=== PATIENT | female | born 1945 | race African-American/Black ===

== ENCOUNTER → 2020-04-16 15:12 | Outpatient (BNVA) | payer MEDICARE, SELFPAY | PROVIDERS: Visit Provider Hospitalist | DX: J44.9 Chronic obstructive pulmonary disease, unspecified (principal); I27.20 Pulmonary hypertension, unspecified; G47.33 Obstructive sleep apnea (adult) (pediatric); Z79.899 Other long term (current) drug therapy; Z99.89 Dependence on other enabling machines and devices | CPT/HCPCS: 99212 ==

== ENCOUNTER → 2020-05-12 09:46 | Outpatient (REF) | payer MEDICARE, SELFPAY ==
--- NOTE | 2020-05-12 09:50 | CA_ITS ---
Transthoracic Echocardiogram Patient (Last, First, Middle): Celeste Koroma, Gender: Female Date of : 1945 Age: 75 Procedure Date: 05/12/2020 Procedure Type: Transthoracic Echocardiogram Location: OP Height: 170.18 cm Weight: 102.06 kg BSA: 2.13 m2 Heart Rate: bpm BP: 122 / 56 mmHg Victims Advocate Clerk/Specialist: Referring MD: Josiah Turk MD Symptoms: I27.20 - Pulmonary hypertension, unspecified Study Quality: Good ECG Rhythm: Sinus Conclusions: - The left ventricular systolic function is normal. The visually estimated ejection fraction is between 65-70%. - The right ventricular systolic pressure is 56 mmHg. Moderate pulmonary hypertension is present. - There is mild calcification of the aortic valve. - There is mild mitral annular calcification. Findings Left Ventricle Normal left ventricular cavity size. There is mildly increased left ventricular wall thickness. The left ventricular systolic function is normal. The visually estimated ejection fraction is between 65-70%. There is no evidence of regional wall motion abnormalities. Diastolic function is normal for age. Right Ventricle Normal right ventricular cavity size and systolic function. Atria Both atria are normal in size. Aortic Valve There is a normal trileaflet aortic valve. There is mild calcification of the aortic valve. There is no aortic valve stenosis. There is no aortic valve regurgitation. Mitral Valve There is mild mitral annular calcification. There is trace mitral valve regurgitation. There is no mitral valve stenosis. Pulmonic Valve The pulmonic valve was not well visualized. Tricuspid Valve Normal tricuspid valve structure. There is mild tricuspid valve regurgitation. The right ventricular systolic pressure is 56 mmHg. Moderate pulmonary hypertension is present. Great Vessels The aortic annulus, sinuses of valsalva, and asc aorta are normal in size. Venous The inferior vena cava is normal in size and collapses greater than 50% with inspiration. Pericardium/Pleural There is no evidence of pericardial effusion. Prior Study Comparison No significant change compared to prior study dated: 08/06/2019. Measurements 2D Linear Measurements RVIDd: 4.33 RVIDd Index: 2.03 IVSd: 1.37 0.6-0.9/0.6-1.0 cm LVIDd: 4.23 3.9-5.3/4.2-5.9 cm LVIDd Index: 1.99 2.4-3.2/2.2-3.1 cm/m2 LVIDs: 2.75 2.0-3.6 cm LVPWd: 1.41 0.7-1.1 cm Ao Root: 2.50 2.1-3.5 cm LA Diam: 5.30 2.7-3.8/3.0-4.0 cm LAIDs Index: 2.49 1.5-2.3 cm/m2 LV Mass: 279.54 67-162/88-224 g LV Mass Index: 131.24 43-95/49-115 g/m2 LVOT Diam: 2.20 3.0+(-)1.3 cm 2D Systolic Function EF 4C: 62.50 >55% EF 2C: 65.00 >55% EF BiP: 64.70 >55% Mitral Valve MV Pk E: 0.88 MV PK A: 0.75 MV Decel Time: 218.00 E/A: 1.20 E'Lateral: 8.16 E'Medial: 7.51 E/E' Med: 11.70 E/E' Lat: 10.80 Aortic Valve AoV Pk Marques: 2.11 AoV Mn Marques: 1.43 AoV VTI: 0.41 AoV Pk Grad: 18.00 Aov Mn Grad: 10.00 JOANA Cont.VTI: 3.40 LVOT LVOT Pk Marques: 1.78 LVOT Mn Marques: 1.25 LVOT VTI: 0.37 LVOT Pk Grad: 13.00 LVOT Mn Grad: 7.00 LVOT Diam: 2.20 LVOT Area: 3.80 Diastolic Function MV Pk E: 0.88 MV Pk A: 0.75 E/A: 1.20 E'Medial: 7.51 E/E' Med: 11.70 E' Laterial: 8.16 E/E' Lat: 10.80 Tricuspid Valve TR Pk Marques: 3.46 TR Pk Grad: 48.00 RA Press: 8.00 RVSP: 56.00 Great Vessels Aorta Ao Root-2D: 2.50 2.0-3.7 cm Ao Asc: 2.90 2.1-3.4 cm Ao Arch: 3.70 Updated in Other Vendor System with Status of Final Chris Vazquez MD electronically signed on 05/12/2020 12:12:14 PM with status of Final
== END ==
LOC: HO.CARD 09:46
PROVIDERS: Visit Provider Hospitalist
DX: I27.20 Pulmonary hypertension, unspecified (principal)
CPT/HCPCS: 93306

== ENCOUNTER → 2020-07-14 13:07 | Outpatient (BNVA) | payer MEDICARE, SELFPAY | PROVIDERS: Visit Provider Hospitalist | DX: G47.33 Obstructive sleep apnea (adult) (pediatric) (principal); J41.0 Simple chronic bronchitis; I27.20 Pulmonary hypertension, unspecified; Z99.89 Dependence on other enabling machines and devices | CPT/HCPCS: 99212 ==

== ENCOUNTER 2020-10-15 14:11 | Outpatient (REF) | payer MEDICARE, SELFPAY ==
--- NOTE | ~2020-10-15 | XR_ITS ---
EXAMINATION: XR CHEST CLINICAL INFORMATION: Simple chronic bronchitis. COMPARISON: None TECHNIQUE: 2 views of the chest were obtained. FINDINGS: No significant abnormality is noted involving the heart, lungs, mediastinum, bony thorax or soft tissues. XR/XR chest 2V IMPRESSION: Unremarkable chest exam.
== END 2020-10-15 14:12 | disposition home or self-care (01) ==
LOC: HO.XRAY 14:11
PROVIDERS: Visit Provider Hospitalist
DX: I27.20 Pulmonary hypertension, unspecified (principal); J41.0 Simple chronic bronchitis; Z79.899 Other long term (current) drug therapy; Z99.81 Dependence on supplemental oxygen; G47.33 Obstructive sleep apnea (adult) (pediatric); Z99.89 Dependence on other enabling machines and devices
CPT/HCPCS: 71046; 99212

== ENCOUNTER → 2021-02-16 14:51 | Outpatient (BNVA) | payer MEDICARE, SELFPAY | PROVIDERS: Visit Provider Hospitalist | DX: I27.20 Pulmonary hypertension, unspecified (principal); J41.0 Simple chronic bronchitis; G47.33 Obstructive sleep apnea (adult) (pediatric); R00.2 Palpitations; Z99.89 Dependence on other enabling machines and devices | CPT/HCPCS: 99212 ==

== ENCOUNTER → 2021-08-13 14:52 | Outpatient (BNVA) | payer MEDICARE, SELFPAY | PROVIDERS: Visit Provider Hospitalist | DX: J41.0 Simple chronic bronchitis (principal); I27.20 Pulmonary hypertension, unspecified; R00.2 Palpitations; G47.33 Obstructive sleep apnea (adult) (pediatric); Z99.89 Dependence on other enabling machines and devices | CPT/HCPCS: 99212 ==

== ENCOUNTER → 2021-12-06 13:54 | Outpatient (REF) | payer MEDICARE, SELFPAY ==
--- NOTE | 2021-12-06 14:01 | CA_ITS ---
Transthoracic Echocardiogram Patient (Last, First, Middle): Celeste Koroma, Gender: Female Date of : 1945 Age: 76 Procedure Date: 12/06/2021 Procedure Type: Transthoracic Echocardiogram Location: OP Height: 170.18 cm Weight: 104.33 kg BSA: 2.15 m2 Heart Rate: 78 bpm Development Officer: SAYRA Referring MD: Josiah Turk MD Communications Equipment Installer: Bin Kelley MD Symptoms: I27.20 - Pulmonary hypertension, unspecified Study Quality: Fair ECG Rhythm: Sinus Conclusions: - 1. Normal LV systolic function with impaired relaxation filling pattern 2. Normal cardiac valvular Doppler 3. Normal RV systolic pressure 4. No gross pericardial effusion Findings Left Ventricle Normal left ventricular size, thickness, and systolic function. The visually estimated ejection fraction is between 60-65%. Spectral Doppler is indicative of an impaired relaxation filling pattern. E/E prime ratio is between 8 and 15 consistent with indeterminate filling pressures. Right Ventricle Normal right ventricular cavity size and systolic function. Atria The left atrium is likely dilated. There is no evidence of interatrial shunt. The right atrium is likely dilated. Aortic Valve The aortic valve was not well visualized. There is no aortic valve stenosis. There is no aortic valve regurgitation. Mitral Valve There is mild anterior mitral leaflet thickening. There is mild mitral annular calcification. There is trace mitral valve regurgitation. There is no mitral valve stenosis. Pulmonic Valve The pulmonic valve was not well visualized. Tricuspid Valve Likely normal tricuspid valve structure and function. There is mild tricuspid valve regurgitation. The right ventricular systolic pressure is normal. The right ventricular systolic pressure is 33 mmHg. There is no evidence of pulmonary hypertension. Great Vessels All visible segments of the aorta are normal in size. The pulmonary artery was not well visualized. Venous The inferior vena cava is normal in size and collapses greater than 50% with inspiration. Pericardium/Pleural There is no evidence of pericardial effusion. Prior Study Comparison Changes noted compared to prior study dated: 05/12/2020. RV systolic pressure measured on this study are within normal limits, could be underestimated Measurements 2D Linear Measurements IVSd: 1.14 0.6-0.9/0.6-1.0 cm LVIDd: 4.42 3.9-5.3/4.2-5.9 cm LVIDd Index: 2.06 2.4-3.2/2.2-3.1 cm/m2 LVIDs: 2.60 2.0-3.6 cm LVPWd: 1.02 0.7-1.1 cm LA Diam: 4.10 2.7-3.8/3.0-4.0 cm LAIDs Index: 1.91 1.5-2.3 cm/m2 LV Mass: 206.48 67-162/88-224 g LV Mass Index: 96.04 43-95/49-115 g/m2 LVOT Diam: 2.20 3.0+(-)1.3 cm 2D Systolic Function EF 4C: 60.30 >55% EF 2C: 53.40 >55% EF BiP: 56.00 >55% Mitral Valve MV Pk E: 0.66 MV PK A: 0.70 MV Decel Time: 166.00 E/A: 1.00 E'Lateral: 6.85 E'Medial: 6.09 E/E' Med: 10.90 E/E' Lat: 9.70 PHT: 49.00 MVA PHT: 4.49 Decel [place]: 4.00 Aortic Valve AoV Pk Marques: 1.59 AoV Mn Marques: 1.07 AoV VTI: 0.30 AoV Pk Grad: 10.00 Aov Mn Grad: 5.00 JOANA Cont.VTI: 3.80 LVOT LVOT Pk Marques: 1.44 LVOT Mn Marques: 0.94 LVOT VTI: 0.30 LVOT Pk Grad: 8.00 LVOT Mn Grad: 4.00 LVOT Diam: 2.20 LVOT Area: 3.80 Diastolic Function MV Pk E: 0.66 MV Pk A: 0.70 E/A: 1.00 E'Medial: 6.09 E/E' Med: 10.90 E' Laterial: 6.85 E/E' Lat: 9.70 Right Ventricle TAPSE (mm): 24.30 TVS' Marques: 11.50 Tricuspid Valve TR Pk Marques: 2.73 TR Pk Grad: 30.00 RA Press: 3.00 RVSP: 33.00 Great Vessels Aorta Sinus of Valsalva: 2.90 2.0-3.5 cm Ao Asc: 3.30 2.1-3.4 cm Ao Arch: 3.40 Pulmonary Valve PV Pk Marques: 1.09 Peak PV Grad: 5.00 Updated in Other Vendor System with Status of Final Bin Kelley MD electronically signed on 12/07/2021 5:27:28 PM with status of Final
== END ==
LOC: HO.CARD 13:54
PROVIDERS: PCP Internal Medicine; Visit Provider Hospitalist
DX: I27.20 Pulmonary hypertension, unspecified (principal)
CPT/HCPCS: 93306

== ENCOUNTER → 2022-02-15 15:30 | Outpatient (BNVA) | payer MEDICARE, SELFPAY | PROVIDERS: PCP Internal Medicine; Visit Provider Hospitalist | DX: J41.0 Simple chronic bronchitis (principal); I27.20 Pulmonary hypertension, unspecified; G47.33 Obstructive sleep apnea (adult) (pediatric); R00.2 Palpitations; Z99.89 Dependence on other enabling machines and devices | CPT/HCPCS: 99212 ==

== ENCOUNTER → 2022-08-11 15:20 | Outpatient (BNVA) | payer MEDICARE, SELFPAY | PROVIDERS: PCP Internal Medicine; Visit Provider Hospitalist | DX: J41.0 Simple chronic bronchitis (principal); G47.33 Obstructive sleep apnea (adult) (pediatric); I27.20 Pulmonary hypertension, unspecified; R00.2 Palpitations; Z99.81 Dependence on supplemental oxygen; Z99.89 Dependence on other enabling machines and devices | CPT/HCPCS: 99212 ==

== ENCOUNTER 2023-03-16 15:29 | Outpatient (AMB) | payer MEDICARE, SELFPAY ==
[2023-03-16 15:31] VITALS: PULSE 79; O2SAT 94; BMI 35.4
--- NOTE | 2023-03-16 15:31 | A.OFFVIS_ITS ---
Intake Vital Signs 03/16/23 15:31 Height 5 ft 7 in Weight 226 lb BMI 35.4 Pulse 79 Pulse Source Pulse Oximeter Pulse Oximetry (%) 94 Oxygen Delivery Method Room Air Intake Visit Reasons: COPD Hydrometeorologist Required: No Allergies No Known Allergies Allergy (Verified 03/16/23 15:33) HPI HPI Comments History of Present Illness0 Details The patient is a 77-year-old woman with a known history of COPD, pulmonary hypertension currently a an PD5 inhibitors. She also has been on the oxygen. Typically uses 2 L with activity. I will have Milli to a conserving device trial at this time. She does follow up with Cardiology a [facility]. Will have to assess to see when she had the last echocardiogram. Her major complaint of significant spasms primarily on the thighs in the groin area. She feels these are related to her radiation therapy she had for breast cancer. She has been on multiple medications for this. Will try some anti-inflammatories to see if we can relieve some of the discomfort. She was wondering about hyperbaric chamber. She will follow-up with oncology regarding this issue. In regards to her COPD appears to be relatively stable on the Breo. She understands the Breo can also cause muscle spasms. She has been taking gabapentin and we did try baclofen in case the muscle spasms were from the long-acting muscarinic antagonist. At this point the patient is not getting any benefits from baclofen. She still having neuropathic pain. He is to consider following up with Neurology. She is using her oxygen. The oxygen supplementation has been effective. She does have a small portable tank. I did recommend she consider getting a filling station at home. She will let us know later on the . She she did have an echocardiogram demonstrating that the PA pressures estimated of 51 mm of mercury. This overall is better. 12/17/2019 the patient is here for pulmonary follow-up visit. Overall she is doing a lot better. She feels that the sildenafil is working well for her. She is also taking the diuretics. She no longer has any lower extremity edema. Her echocardiogram was reassuring with the pressure is coming down as far as the PA pressures. She denies any further chest pains like she had before during the last visit. She did try ibuprofen for briefly and appears to be improved at this time. She continues to use her CPAP at nighttime. The CPAP therapy has been affecting beneficial. She does have a fullface mask that is bothering the bridge of her nose. Therefore I will request that she gets a different mask such as F30 that she could fit better without any irritation to the bridge of her nose. She continues use the oxygen. She does take it oxygen off when she is sitting up as long she pulse ox above 90%. 04/16/2020 the patient is here for pulmonary follow-up visit. Overall the patient has been doing well. She continues on the sildenafil, although, she was only taking it twice a day. She understands that she needs to take it 3 times a day. Patient has been using her oxygen. She has been able to take breaks while she is resting maintaining a pulse ox above 90%. At she has been using her CPAP the oxygen good effect. The therapy has been affecting beneficial. She does uses CPAP more than 4 hours a night. The patient has underlying pulmonary hypertension. She still has some dyspnea on exertion [id number] severity. Her lower extremity edema is indeed better. At this point will plan to repeat her echocardiogram and see if we can adjust her face a dilator therapy. the patient is here for pulmonary follow-up visit. Overall the patient has been doing well from a respiratory status. She continues to take the sildenafil 20 mg 3 times a day with good effect. She is also using the CPAP at nighttime. The CPAP therapy continues to be affecting beneficial. She does use for more than 4 hours a night. It appears that her repeat echocardiogram demonstrates that her PA pressures are slightly more elevated than before up to size 56 mm of mercury, therefore, will go ahead and increase sildenafil to 40 mg 3 times a day. The patient will monitor closely her blood pressure also any evidence of any dizziness and she also monitor her oxygen. If she has any other concerns of side effects from medication or if she is not sure she is to call us for evaluation. In the meantime she is having issues with right hip. She will follow-up with orthopedic surgery at this time. 10/15/2020 the patient is here for pulmonary follow-up visit. Overall the patient has been doing about the same. She continues to use the oxygen with activity at 2-3 L pulse. She typically is able to stay on room air at rest. We had center a prescription for high-dose sildenafil of 40 mg 3 times a week due to the fact that her pulmonary pressures were still moderately elevated. However, she was concerned about taking additional medications that she has not done as of yet. Explained to her that she can do slowly taking 2 tablets at least once at the 3 times to see how she response to the higher dose. I foresee that she will do better. Explained to her that if the medication works she should have better oxygenation and she will be happy about that. She continues taking the Breo daily. She has not been taking the Spiriva at this time. Will have the patient undergo a chest x-ray. I am hoping that she can increase her sildenafil so we can perform a 6 minutes walk test during his next visit in 3 months. 02/16/2021 the patient is here for a pulmonary follow-up visit. Overall the patient is feeling well. She still using the oxygen with the activity at 2- 3 L pulse. She was concerned about increasing the sildenafil. She did not want to have an adverse reaction so therefore she did not increase it. She is still on the 20 mg 3 times a day. She understood that the reasoning was that her pulmonary pressures were still moderately elevated with a PA systolic estimated pressure of a 56 mmHg. In the meantime the patient has been using her CPAP. CPAP therapy continues to be affecting beneficial. She does tolerated the whole night. Right now I do not have access to her CPAP and will be calling her [employer] in order to be able to get a download. the patient has been using her respiratory therapy with good effect. She is tolerating the Trelegy very well. She also continues on the diuretic. She has noticed some slight lower extremity edema specially be of the day. Her new complaint is that she has had some episodes of palpitations and fluttering. she had been seen by Cardiology past at [facility]. I will refer her again in order for her to have an evaluation specially with her significant pulmonary hypertension she is at risk for developing cardiac arrhythmias. the patient is not on any anticoagulation at this time. 08/13/2021 the patient is here for a pulmonary follow-up visit. Overall she is doing well. Denies any chest pains or palpitations. We did refer her to Cardiology during the last visit but she did not follow up with an appointment there. She continues use her CPAP at nighttime. The CPAP therapy continues to be affecting beneficial. She has been getting supplies regularly. She does have any issues with her CPAP. The patient has been using the oxygen with activity. She also continues on the sildenafil 3 times a day. She does need to get a new echo. Her last estimated pressures were up to 56 mmHg. 02/15/2022 the patient is here for a pulmonary follow-up visit. Overall she is doing well. Her shortness of breath has improved. Sometimes she does walk without the oxygen she feels well. Usually in the house she is not using it. She is using it for sleep which is affecting beneficial. The patient is also using CPAP at nighttime. The CPAP therapy continues to be very important. She does use it more than 4 hours a night. She is getting the wound mask. I will resend the prescription to the [employer] in order for her to get the right 1. the patient did have a repeat echocardiogram. It appears that her pulmonary pressures have improved dramatically from is 56 mmHg down to the low 30s. This is very encouraging. She continues on the sildenafil she is tolerating well. She does have increased cough and also now going to the fall usually has increased wheezing. She had been on Advair before but it was very prior IC. I will go ahead and give her prescription for Trelegy with coupon in order for her to start a maintenance the inhaler. When she has completed the Trelegy she can try to fill it. If it is too expensive will find another alternative. 08/12/2022 the patient is here for a pulmonary follow-up visit. Overall the patient had been doing well. She is still waiting for the sildenafil. There was an issue with a prescription. Will go ahead and resend to the ph armacy. We did talk about her echocardiogram demonstrating interval improvement in her pulmonary arterial pressures which is reassuring. Will have to repeat the echocardiogram sometime in 6 months or so to make sure that still stability of disease. We can also consider increasing the sildenafil if additional medication is warranted. In regards the CPAP the CPAP therapy continues to be affecting beneficial. She does use it every night along with her oxygen. She continues use the oxygen with activity with good effect and continues use her respiratory medicine. Although, the Trelegy is extremely expensive. Therefore I will send her Advair to the pharmacy. If the Advair is not cover or still too expensive then we can consider using good Rx card and getting AirDuo. 03/16/2023 the patient is here for a pulmonary follow-up visit. The patient continues to have dyspnea on exertion. Moderate severity. She is dependent on the oxygen. Although the portable tanks difficult for her to handle because of the weight. She is hoping to be able to switch over to a conserving device. we did do a 6 minute walk test. We initially placed her on room air and she did desaturate down to 80%. The patient was placed on 3 L pulse and she was able to maintain a pulse ox of 94% On the 3 L pulse of rest. She was then ambulated and she was able to maintain pulse ox at 90%. Therefore will go ahead and give her a prescription so she can get some conserving device tanks from her [employer] company and therefore use the oxygen more regularly. If the patient continues to do well with the conserving device tanks then we can request a portable oxygen concentrator. She will be following up with [employer] soon. She will continue with the current respiratory regimen. She is using CPAP at nighttime. The CPAP therapy has been affecting beneficial. She does use it for more than 4 hours a night. [facility] Medical History (Updated 02/15/22 @ 23:38 by Josiah Turk MD) Palpitations RIP on CPAP COPD (chronic obstructive pulmonary disease) Pulmonary hypertension Social History (Updated 02/16/21 @ 15:09 by BELL Garcia) Patient Tobacco Use Status: Never used Tobacco Review of Systems Const Denies night sweats ENT Denies change in voice, Denies lip swelling, Denies mouth pain, Reports nasal congestion, Reports nasal discharge and Denies tongue swelling Card Denies chest pain and Reports dyspnea on exertion Resp Reports cough, Reports dyspnea on exertion and Denies wheezing GI Denies abdominal pain Musc Denies no additional complaints Neuro Denies Neuro-related abnormal movements Psych Denies no additional complaints Winston/Lymph Denies easy bleeding and Denies lymphadenopathy Aller/Immun Denies lip swelling, Denies tongue swelling and Denies wheezing Physical Exam Vital Signs: Last Vital Signs Pulse 79 03/16/23 15:31 Pulse Ox 94 03/16/23 15:31 Oxygen Delivery Method Room Air 03/16/23 15:31 BMI result Body Mass Index 35.4 Const General: alert Neck Neck: Yes normal visual inspection, Yes full ROM and Yes no lymphadenopathy Chest Chest palpation & inspection: normal inspection of the chest Resp Effort & Inspection: normal respiratory effort Auscultation: no wheezes and diminished lung sounds Cardio Rate: regular rate Rhythm: regular rhythm Heart sounds: S1 normal heart sound present and S2 normal heart sound present GI Palpation (GI): Soft to palpation and nontender Auscultation: normal bowel sounds Skin General skin exam: rashes and/or lesions noted Office Procedures 6 Minute Walk Time:: 22:57 SPO2 % at rest: 87 Pulse at rest: 78 Supplemental Oxygen: hypoxic 87% on RA at rest, on 3l/pulse improved to 94%. With activity on 3L/pulse pox 90% [id number] - 6 Minute Walk Assessment & Plan Assessment & Plan (1) RIP on CPAP: Code(s): G47.33 - Obstructive sleep apnea (adult) (pediatric); Z99.89 - Dependence on other enabling machines and devices (2) COPD (chronic obstructive pulmonary disease): Code(s): J44.9 - Chronic obstructive pulmonary disease, unspecified Qualifiers: COPD type: chronic bronchitis Chronic bronchitis type: simple Qualified Code(s): J41.0 - Simple chronic bronchitis (3) Pulmonary hypertension: Comment: better Code(s): I27.20 - Pulmonary hypertension, unspecified (4) Palpitations: Code(s): R00.2 - Palpitations Plan Revision: requesting conserving tank oxygen 3L pulse with rest and activity continue Breo ANNALISE as needed continue Sildenafil 20mg TID CPAP at night with oxygen F/U 6 months Coding Level of Care Code Est Pt Level 4 (13600) Diagnoses RIP on CPAP G47.33; Z99.89 Simple chronic bronchitis J41.0 COPD type: chronic bronchitis Chronic bronchitis type: simple Pulmonary hypertension I27.20 Palpitations R00.2 CPT Codes Coding ([id number]) Time Spent (min) 17
[2023-03-16 22:57] VITALS: PULSE 78; O2SAT 87
== END 2023-03-16 16:03 | disposition home or self-care (01) ==
PROVIDERS: PCP Internal Medicine; Visit Provider Hospitalist
DX: G47.33 Obstructive sleep apnea (adult) (pediatric) (principal); Z99.89 Dependence on other enabling machines and devices; J41.0 Simple chronic bronchitis; I27.20 Pulmonary hypertension, unspecified; R00.2 Palpitations
CPT/HCPCS: 94618; 99214

== ENCOUNTER → 2023-03-16 15:29 | Outpatient (BNVA) | payer MEDICARE, SELFPAY | PROVIDERS: Visit Provider Hospitalist | DX: J41.0 Simple chronic bronchitis (principal); G47.33 Obstructive sleep apnea (adult) (pediatric); I27.20 Pulmonary hypertension, unspecified; R00.2 Palpitations; Z99.89 Dependence on other enabling machines and devices | CPT/HCPCS: 94618; 99212 ==

== ENCOUNTER 2023-06-27 14:43 | Outpatient (AMB) | payer MEDICARE, SELFPAY ==
--- NOTE | 2023-06-27 14:46 | MHC.OFFVIS ---
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 She also has been on the oxygen. Typically uses 2 L with activity. I will have Lidiaare to a conserving device trial at this time. She does follow up with Cardiology a [facility]. Will have to assess to see when she had the last echocardiogram. Her major complaint of significant spasms primarily on the thighs in the groin area. She feels these are related to her radiation therapy she had for breast cancer. She has been on multiple medications for this. Will try some anti-inflammatories to see if we can relieve some of the discomfort. She was wondering about hyperbaric chamber. She will follow-up with oncology regarding this issue. In regards to her COPD appears to be relatively stable on the Breo. She understands the Breo can also cause muscle spasms. She has been taking gabapentin and we did try baclofen in case the muscle spasms were from the long-acting muscarinic antagonist. At this point the patient is not getting any benefits from baclofen. She still having neuropathic pain. He is to consider following up with Neurology. She is using her oxygen. The oxygen supplementation has been effective. She does have a small portable tank. I did recommend she consider getting a filling station at home. She will let us know later on the . She she did have an echocardiogram demonstrating that the PA pressures estimated of 51 mm of mercury. This overall is better. 08/12/2022 the patient is here for a pulmonary follow-up visit. Overall the patient had been doing well. She is still waiting for the sildenafil. There was an issue with a prescription. Will go ahead and resend to the pharmacy. We did talk about her echocardiogram demonstrating interval improvement in her pulmonary arterial pressures which is reassuring. Will have to repeat the echocardiogram sometime in 6 months or so to make sure that still stability of disease. We can also consider increasing the sildenafil if additional medication is warranted. In regards the CPAP the CPAP therapy continues to be affecting beneficial. She does use it every night along with her oxygen. She continues use the oxygen with activity with good effect and continues use her respiratory medicine. Although, the Trelegy is extremely expensive. Therefore I will send her Advair to the pharmacy. If the Advair is not cover or still too expensive then we can consider using good Rx card and getting AirDuo. 03/16/2023 the patient is here for a pulmonary follow-up visit. The patient continues to have dyspnea on exertion. Moderate severity. She is dependent on the oxygen. Although the portable tanks difficult for her to handle because of the weight. She is hoping to be able to switch over to a conserving device. we did do a 6 minute walk test. We initially placed her on room air and she did desaturate down to 80%. The patient was placed on 3 L pulse and she was able to maintain a pulse ox of 94% On the 3 L pulse of rest. She was then ambulated and she was able to maintain pulse ox at 90%. Therefore will go ahead and give her a prescription so she can get some conserving device tanks from her [employer] company and therefore use the oxygen more regularly. If the patient continues to do well with the conserving device tanks then we can request a portable oxygen concentrator. She will be following up with cash applications analyst soon. She will continue with the current respiratory regimen. She is using CPAP at nighttime. The CPAP therapy has been affecting beneficial. She does use it for more than 4 hours a night. 06/27/2023 the patient is here for a pulmonary follow-up visit. She continues to do fairly well. The patient continues use her oxygen with good effect. She does use the conserving device. She only gets 1 conserving device valve which is very difficult as she has 2 small tanks that she likes use for portability outside of the home. I will request a additional conserving valve from her [employer] company. In addition to that the patient has been using her CPAP every night in the CPAP therapy has been affecting beneficial. She does use it for more than 4 hours a night. Unfortunately is given a message stating that it needs service. The patient has had this machine for more than 10 years. She is due for replacement at this time. I will request a replacement CPAP at this time from her do local [employer] company. She continues use her respiratory medications as prescribed. The patient also continues on sildenafil for pulmonary hypertension. Her last echo on record is from November 2021 estimate in in high normal pulmonary pressures suggesting that the medication is adequate. At some point which repeat her echocardiogram. [facility] Medical History (System 04/18/23 @ 15:41 by Sheron Holden) Palpitations RIP on CPAP COPD (chronic obstructive pulmonary disease) Pulmonary hypertension Social History (System 04/18/23 @ 15:41 by Sheron Holden) Patient Tobacco Use Status: Never used Tobacco Review of Systems Const Denies night sweats ENT Denies change in voice, Denies lip swelling, Denies mouth pain, Reports nasal congestion, Reports nasal discharge and Denies tongue swelling Card Denies chest pain and Reports dyspnea on exertion Resp Reports cough, Reports dyspnea on exertion and Denies wheezing GI Denies abdominal pain Musc Denies no additional complaints Neuro Denies Neuro-related abnormal movements Psych Denies no additional complaints Winston/Lymph Denies easy bleeding and Denies lymphadenopathy Aller/Immun Denies lip swelling, Denies tongue swelling and Denies wheezing Physical Exam Vital Signs: Last Vital Signs Pulse 80 06/27/23 14:50 Pulse Ox 90 L 06/27/23 14:50 Oxygen Delivery Method Room Air 06/27/23 14:50 BMI result Body Mass Index 35.9 Const General: alert Neck Neck: Yes normal visual inspection, Yes full ROM and Yes no lymphadenopathy Chest Chest palpation & inspection: normal inspection of the chest Resp Effort & Inspection: normal respiratory effort Auscultation: no wheezes and diminished lung sounds Cardio Rate: regular rate Rhythm: regular rhythm Heart sounds: S1 normal heart sound present and S2 normal heart sound present GI Palpation (GI): Soft to palpation and nontender Auscultation: normal bowel sounds Skin General skin exam: rashes and/or lesions noted Assessment & Plan Assessment & Plan (1) RIP on CPAP: Code(s): G47.33 - Obstructive sleep apnea (adult) (pediatric); Z99.89 - Dependence on other enabling machines and devices (2) COPD (chronic obstructive pulmonary disease): Code(s): J44.9 - Chronic obstructive pulmonary disease, unspecified Qualifiers: COPD type: chronic bronchitis Chronic bronchitis type: simple Qualified Code(s): J41.0 - Simple chronic bronchitis (3) Pulmonary hypertension: Comment: better Code(s): I27.20 - Pulmonary hypertension, unspecified (4) Palpitations: Code(s): R00.2 - Palpitations Plan Revision: requesting conserving tank oxygen 3L pulse with rest and activity. Needs an additional conserving valve continue Breo ANNALISE as needed continue Sildenafil 20mg TID CPAP at night with oxygen. Needs a replacement APAP. Current machine is >10 yrs old now with service alarm ECHO and CXR for the next visit F/U 6 months Coding Level of Care Code Est Pt Level 4 (49250) Diagnoses RIP on CPAP G47.33; Z99.89 Simple chronic bronchitis J41.0 COPD type: chronic bronchitis Chronic bronchitis type: simple Pulmonary hypertension I27.20 Palpitations R00.2 Time Spent (min) 17
[2023-06-27 14:50] VITALS: PULSE 80; O2SAT 90; BMI 35.9
== END 2023-06-27 15:17 | disposition home or self-care (01) ==
PROVIDERS: PCP Internal Medicine; Visit Provider Hospitalist
DX: G47.33 Obstructive sleep apnea (adult) (pediatric) (principal); Z99.89 Dependence on other enabling machines and devices; J41.0 Simple chronic bronchitis; I27.20 Pulmonary hypertension, unspecified; R00.2 Palpitations
CPT/HCPCS: 99214

== ENCOUNTER → 2023-06-27 14:43 | Outpatient (BNVA) | payer MEDICARE, SELFPAY | PROVIDERS: PCP Internal Medicine; Visit Provider Hospitalist | DX: J41.0 Simple chronic bronchitis (principal); G47.33 Obstructive sleep apnea (adult) (pediatric); I27.20 Pulmonary hypertension, unspecified; R00.2 Palpitations; Z99.89 Dependence on other enabling machines and devices | CPT/HCPCS: 99212 ==

== ENCOUNTER 2023-12-26 14:58 | Outpatient (AMB) | payer MEDICARE, SELFPAY ==
--- NOTE | 2023-12-26 15:13 | A.OFFVIS_ITS ---
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 She also has been on the oxygen. Typically uses 2 L with activity. I will have [employer] to a conserving device trial at this time. She does follow up with Cardiology a [facility]. Will have to assess to see when she had the last echocardiogram. Her major complaint of significant spasms primarily on the thighs in the groin area. She feels these are related to her radiation therapy she had for breast cancer. She has been on multiple medications for this. Will try some anti-inflammatories to see if we can relieve some of the discomfort. She was wondering about hyperbaric chamber. She will follow-up with oncology regarding this issue. In regards to her COPD appears to be relatively stable on the Breo. She understands the Breo can also cause muscle spasms. She has been taking gabapentin and we did try baclofen in case the muscle spasms were from the long-acting muscarinic antagonist. At this point the patient is not getting any benefits from baclofen. She still having neuropathic pain. He is to consider following up with Neurology. She is using her oxygen. The oxygen supplementation has been effective. She does have a small portable tank. I did recommend she consider getting a filling station at home. She will let us know later on the springtime. She she did have an echocardiogram demonstrating that the PA pressures estimated of 51 mm of mercury. This overall is better. 08/12/2022 the patient is here for a pulmonary follow-up visit. Overall the patient had been doing well. She is still waiting for the sildenafil. There was an issue with a prescription. Will go ahead and resend to the pharmacy. We did talk about her echocardiogram demonstrating interval i mprovement in her pulmonary arterial pressures which is reassuring. Will have to repeat the echocardiogram sometime in 6 months or so to make sure that still stability of disease. We can also consider increasing the sildenafil if additional medication is warranted. In regards the CPAP the CPAP therapy continues to be affecting beneficial. She does use it every night along with her oxygen. She continues use the oxygen with activity with good effect and continues use her respiratory medicine. Although, the Trelegy is extremely expensive. Therefore I will send her Advair to the pharmacy. If the Advair is not cover or still too expensive then we can consider using good Rx card and getting AirDuo. 03/16/2023 the patient is here for a pulmonary follow-up visit. The patient continues to have dyspnea on exertion. Moderate severity. She is dependent on the oxygen. Although the portable tanks difficult for her to handle because of the weight. She is hoping to be able to switch over to a conserving device. we did do a 6 minute walk test. We initially placed her on room air and she did desaturate down to 80%. The patient was placed on 3 L pulse and she was able to maintain a pulse ox of 94% On the 3 L pulse of rest. She was then ambulated and she was able to maintain pulse ox at 90%. Therefore will go ahead and give her a prescription so she can get some conserving device tanks from her [employer] company and therefore use the oxygen more regularly. If the patient continues to do well with the conserving device tanks then we can request a portable oxygen concentrator. She will be following up with meter and service line inspector soon. She will continue with the current respiratory regimen. She is using CPAP at nighttime. The CPAP therapy has been affecting beneficial. She does use it for more than 4 hours a night. 06/27/2023 the patient is here for a pulmonary follow-up visit. She continues to do fairly well. The patient continues use her oxygen with good effect. She does use the conserving device. She only gets 1 conserving device valve which is very difficult as she has 2 small tanks that she likes use for portability outside of the home. I will request a additional conserving valve from her [employer] company. In addition to that the patient has been using her CPAP every night in the CPAP therapy has been affecting beneficial. She does use it for more than 4 hours a night. Unfortunately is given a message stating that it needs service. The patient has had this machine for more than 10 years. She is due for replacement at this time. I will request a replacement CPAP at this time from her do local DME company. She continues use her respiratory medications as prescribed. The patient also continues on sildenafil for pulmonary hypertension. Her last echo on record is from November 2021 estimate in in high normal pulmonary pressures suggesting that the medication is adequate. At some point which repeat her echocardiogram. 12/26/2023 the patient is here for a pulmonary follow-up visit. The patient is doing well. She continues on the oxygen with good effect. She also continues on the sildenafil 3 times a day. She continues with respiratory therapy. She still gets shortness of breath with activity. But is at baseline. She needs to get an echocardiogram hopefully get 1 prior to her next visit. She is using her CPAP. The CPAP therapy has been affecting beneficial when she does use it every night. We did download her machine is AHI is less than 1. The patient has pressure are adequate. Therefore she will continue the CPAP therapy at the current settings. She will continue with respiratory therapy. She will follow-up in a 6 months' time with the echocardiogram. If the patient has any issues prior to that she will call for an earlier assessment. [facility] Medical History (System 04/18/23 @ 15:41 by Sheron Holden) Palpitations RIP on CPAP COPD (chronic obstructive pulmonary disease) Pulmonary hypertension Social History (System 04/18/23 @ 15:41 by Sheron Holden) Patient Tobacco Use Status: Never used Tobacco Review of Systems Const Denies night sweats ENT Denies change in voice, Denies lip swelling, Denies mouth pain, Reports nasal congestion, Reports nasal discharge and Denies tongue swelling Card Denies chest pain and Reports dyspnea on exertion Resp Reports cough, Reports dyspnea on exertion and Denies wheezing GI Denies abdominal pain Musc Denies no additional complaints Neuro Denies Neuro-related abnormal movements Psych Denies no additional complaints Winston/Lymph Denies easy bleeding and Denies lymphadenopathy Aller/Immun Denies lip swelling, Denies tongue swelling and Denies wheezing Physical Exam Vital Signs: Last Vital Signs Pulse 79 12/26/23 15:14 Pulse Ox 91 L 12/26/23 15:14 Oxygen Delivery Method Room Air 12/26/23 15:14 BMI result Body Mass Index 35.2 Const General: alert Neck Neck: Yes normal visual inspection, Yes full ROM and Yes no lymphadenopathy Chest Chest palpation & inspection: normal inspection of the chest Resp Effort & Inspection: normal respiratory effort Auscultation: no wheezes and diminished lung sounds Cardio Rate: regular rate Rhythm: regular rhythm Heart sounds: S1 normal heart sound present and S2 normal heart sound present GI Palpation (GI): Soft to palpation and nontender Auscultation: normal bowel sounds Skin General skin exam: rashes and/or lesions noted Assessment & Plan Assessment & Plan (1) RIP on CPAP: Code(s): G47.33 - Obstructive sleep apnea (adult) (pediatric); Z99.89 - Dependence on other enabling machines and devices Category: Medical (2) COPD (chronic obstructive pulmonary disease): Code(s): J44.9 - Chronic obstructive pulmonary disease, unspecified Category: Medical Qualifiers: COPD type: chronic bronchitis Chronic bronchitis type: simple Qualified Code(s): J41.0 - Simple chronic bronchitis (3) Pulmonary hypertension: Comment: better Code(s): I27.20 - Pulmonary hypertension, unspecified Category: Medical (4) Palpitations: Code(s): R00.2 - Palpitations Category: Medical Plan continue conserving tank oxygen 3L pulse with rest and activity. Needs an additional conserving valve continue Breo ANNALISE as needed continue Sildenafil 20mg TID CPAP at night with oxygen. New APAP 2023 ECHO and CXR for the next visit F/U 6 months Orders: Orders CA echo transthoracic complete Today I27.20 - Pulmonary hypertension, unspecified XR chest 2V 4 Months I27.20 - Pulmonary hypertension, unspecified Medications: Refilled sildenafil (pulm.hypertension) administer doses at least 4-6 hours apart 20 mg PO TID 90 days 270 tabs 3RF I27.20 - Pulmonary hypertension, unspecified Discontinued Breo Ellipta 200-25 mcg/dose (fluticasone furoate-vilanterol) Discontinued Reason: Duplicate 1 inh inhalation DAILY 30 days 60 ea 11RF NS J45.909 - Unspecified asthma, uncomplicated Coding Level of Care Code Est Pt Level 4 (56544) Complex EM visit Add On G2211 Diagnoses RIP on CPAP G47.33; Z99.89 Simple chronic bronchitis J41.0 COPD type: chronic bronchitis Chronic bronchitis type: simple Pulmonary hypertension I27.20 Palpitations R00.2 Time Spent (min) 16
[2023-12-26 15:14] VITALS: PULSE 79; O2SAT 91; BMI 35.2
== END 2023-12-26 15:28 | disposition home or self-care (01) ==
PROVIDERS: PCP Internal Medicine; Visit Provider Hospitalist
DX: G47.33 Obstructive sleep apnea (adult) (pediatric) (principal); Z99.89 Dependence on other enabling machines and devices; J41.0 Simple chronic bronchitis; I27.20 Pulmonary hypertension, unspecified; R00.2 Palpitations
CPT/HCPCS: 99214; G2211

== ENCOUNTER → 2023-12-26 14:58 | Outpatient (BNVA) | payer MEDICARE, SELFPAY | PROVIDERS: PCP Internal Medicine; Visit Provider Hospitalist | DX: J41.0 Simple chronic bronchitis (principal); G47.33 Obstructive sleep apnea (adult) (pediatric); I27.20 Pulmonary hypertension, unspecified; R00.2 Palpitations; Z99.89 Dependence on other enabling machines and devices | CPT/HCPCS: 99212 ==

== ENCOUNTER → 2024-02-13 12:34 | Outpatient (REF) | payer MEDICARE, SELFPAY ==
--- NOTE | 2024-02-13 12:37 | CA_ITS ---
Transthoracic Echocardiogram Patient (Last, First, Middle): Celeste Koroma A Gender: Female Date of : 1945 Age: 78 Procedure Date: 02/13/2024 Procedure Type: Transthoracic Echocardiogram Location: OP Height: 170.18 cm Weight: 102.06 kg BSA: 2.13 m2 Heart Rate: 70 bpm BP: 140 / 76 mmHg Spinning Frame Fixer: SB Referring MD: Josiah Turk MD Security Solutions Architect: Bin Kelley MD Symptoms: I27.20 - Pulmonary hypertension, unspecified Study Quality: Adequate ECG Rhythm: Sinus Conclusions: - 1. Normal LV ejection fraction of 65-70% with impaired relaxation filling pattern 2. Mildly dilated left atrium 3. Moderately elevated right ventricular systolic pressure 4. No gross pericardial effusion Findings Left Ventricle Normal left ventricular size, thickness, and systolic function. The visually estimated ejection fraction is between 65-70%. Spectral Doppler is indicative of an impaired relaxation filling pattern. E/E prime ratio is between 8 and 15 consistent with indeterminate filling pressures. Right Ventricle Normal right ventricular cavity size and systolic function. Atria The left atrium is mildly dilated. There is no evidence of interatrial shunt. The right atrium is likely dilated. Aortic Valve Normal aortic valve structure and function. There is no aortic valve stenosis. There is no aortic valve regurgitation. Mitral Valve There is mild anterior mitral leaflet thickening. There is moderate mitral annular calcification. There is trace mitral valve regurgitation. There is no mitral valve stenosis. Pulmonic Valve The pulmonic valve is likely normal. Tricuspid Valve Normal tricuspid valve structure. There is mild to moderate tricuspid valve regurgitation. Normal right atrial pressure. Moderate pulmonary hypertension is present. Great Vessels All visible segments of the aorta are normal in size. The pulmonary artery was not well visualized. There is no dilatation of the ascending aorta measuring 3.20 cm. Venous The inferior vena cava is normal in size and collapses greater than 50% with inspiration. Pericardium/Pleural There is no evidence of pericardial effusion. Measurements 2D Linear Measurements IVSd: 1.03 0.6-0.9/0.6-1.0 cm LVIDd: 4.58 3.9-5.3/4.2-5.9 cm LVIDd Index: 2.15 2.4-3.2/2.2-3.1 cm/m2 LVIDs: 2.77 2.0-3.6 cm LVPWd: 0.88 0.7-1.1 cm LA Diam: 4.10 2.7-3.8/3.0-4.0 cm LAIDs Index: 1.92 1.5-2.3 cm/m2 LV Mass: 184.91 67-162/88-224 g LV Mass Index: 86.81 43-95/49-115 g/m2 LVOT Diam: 2.00 3.0+(-)1.3 cm 2D Systolic Function EF 4C: 61.90 >55% EF 2C: 69.20 >55% EF BiP: 65.40 >55% Mitral Valve MV Pk E: 0.63 MV PK A: 0.66 MV Decel Time: 191.00 E/A: 0.90 E'Lateral: 7.18 E'Medial: 7.94 E/E' Med: 7.90 E/E' Lat: 8.70 PHT: 56.00 MVA PHT: 3.93 Decel Carroll: 3.27 Aortic Valve AoV Pk Marques: 1.57 AoV Pk Grad: 10.00 JOANA: 2.90 LVOT LVOT Pk Marques: 1.48 LVOT Mn Marques: 0.99 LVOT VTI: 0.33 LVOT Pk Grad: 9.00 LVOT Mn Grad: 5.00 LVOT Diam: 2.00 LVOT Area: 3.14 Diastolic Function MV Pk E: 0.63 MV Pk A: 0.66 E/A: 0.90 E'Medial: 7.94 E/E' Med: 7.90 E' Laterial: 7.18 E/E' Lat: 8.70 Right Ventricle TAPSE (mm): 24.90 TVS' Marques: 13.20 Tricuspid Valve TR Pk Marques: 3.28 TR Pk Grad: 43.00 RA Press: 3.00 RVSP: 46.00 Great Vessels Aorta Sinus of Valsalva: 2.90 2.0-3.5 cm Ao Asc: 3.20 2.1-3.4 cm Pulmonary Valve PV Pk Marques: 0.94 Peak PV Grad: 3.00 Updated in Other Vendor System with Status of Final Bin Kelley MD electronically signed on 02/14/2024 6:16:22 PM with status of Final
== END ==
LOC: HO.CARD 12:34
PROVIDERS: PCP Internal Medicine; Visit Provider Hospitalist
DX: I27.20 Pulmonary hypertension, unspecified (principal)
CPT/HCPCS: 93306

== ENCOUNTER → 2024-02-13 12:37 | Outpatient (BNV) | payer MEDICARE, SELFPAY | PROVIDERS: PCP Internal Medicine; Visit Provider Internal Medicine Cardiovascular Disease | DX: I36.1 Nonrheumatic tricuspid (valve) insufficiency (principal); I27.20 Pulmonary hypertension, unspecified; I34.81 Nonrheumatic mitral (valve) annulus calcification | CPT/HCPCS: 93306 ==

== ENCOUNTER 2024-06-28 15:21 | Outpatient (AMB) | payer MEDICARE, SELFPAY ==
[2024-06-28 15:22] VITALS: BP 134/76; PULSE 76; O2SAT 83; BMI 35.7
--- NOTE | 2024-06-28 15:22 | A.OFFVIS_ITS ---
Vital Signs 06/28/24 15:22 Height 5 ft 7 in Weight 228 lb 2.855 oz BMI 35.7 BP 134/76 Blood Pressure Location Rt brachial Position Sitting Pulse 76 Pulse Source Pulse Oximeter Pulse Oximetry (%) 83 L Oxygen Delivery Method Room Air Intake Visit Reasons: COPD Allergies No Known Allergies Allergy (Verified 06/28/24 15:26) HPI Comments Details: The patient is a 79-year-old woman with a known history of COPD, pulmonary hypertension currently a an PD5 inhibitors. She also has been on the oxygen. Typically uses 2 L with activity. I will have [employer] to a conserving device trial at this time. She does follow up with Cardiology a [facility]. Will have to assess to see when she had the last echocardiogram. Her major complaint of significant spasms primarily on the thighs in the groin area. She feels these are related to her radiation therapy she had for breast cancer. She has been on multiple medications for this. Will try some anti-inflammatories to see if we can relieve some of the discomfort. She was wondering about hyperbaric chamber. She will follow-up with oncology regarding this issue. In re gards to her COPD appears to be relatively stable on the Breo. She understands the Breo can also cause muscle spasms. She has been taking gabapentin and we did try baclofen in case the muscle spasms were from the long-acting muscarinic antagonist. At this point the patient is not getting any benefits from baclofen. She still having neuropathic pain. He is to consider following up with Neurology. She is using her oxygen. The oxygen supplementation has been effective. She does have a small portable tank. I did recommend she consider getting a filling station at home. She will let us know later on the springtime. She she did have an echocardiogram demonstrating that the PA pressures estimated of 51 mm of mercury. This overall is better. 08/12/2022 the patient is here for a pulmonary follow-up visit. Overall the patient had been doing well. She is still waiting for the sildenafil. There was an issue with a prescription. Will go ahead and resend to the pharmacy. We did talk about her echocardiogram demonstrating interval improvement in her pulmonary arterial pressures which is reassuring. Will have to repeat the echocardiogram sometime in 6 months or so to make sure that still stability of disease. We can also consider increasing the sildenafil if additional medication is warranted. In regards the CPAP the CPAP therapy continues to be affecting beneficial. She does use it every night along with her oxygen. She continues use the oxygen with activity with good effect and continues use her respiratory medicine. Although, the Trelegy is extremely expensive. Therefore I will send her Advair to the pharmacy. If the Advair is not cover or still too expensive then we can consider using good Rx card and getting AirDuo. 03/16/2023 the patient is here for a pulmonary follow-up visit. The patient continues to have dyspnea on exertion. Moderate severity. She is dependent on the oxygen. Although the portable tanks difficult for her to handle because of the weight. She is hoping to be able to switch over to a conserving device. we did do a 6 minute walk test. We initially placed her on room air and she did desaturate down to 80%. The patient was placed on 3 L pulse and she was able to maintain a pulse ox of 94% On the 3 L pulse of rest. She was then ambulated and she was able to maintain pulse ox at 90%. Therefore will go ahead and give her a prescription so she can get some conserving device tanks from her [employer] company and therefore use the oxygen more regularly. If the patient continues to do well with the conserving device tanks then we can request a portable oxygen concentrator. She will be following up with hoist mechanic soon. She will continue with the current respiratory regimen. She is using CPAP at nighttime. The CPAP therapy has been affecting beneficial. She does use it for more than 4 hours a night. 06/27/2023 the patient is here for a pulmonary follow-up visit. She continues to do fairly well. The patient continues use her oxygen with good effect. She does use the conserving device. She only gets 1 conserving device valve which is very difficult as she has 2 small tanks that she likes use for po rtability outside of the home. I will request a additional conserving valve from her [employer] company. In addition to that the patient has been using her CPAP every night in the CPAP therapy has been affecting beneficial. She does use it for more than 4 hours a night. Unfortunately is given a message stating that it needs service. The patient has had this machine for more than 10 years. She is due for replacement at this time. I will request a replacement CPAP at this time from her do local [employer] company. She continues use her respiratory medications as prescribed. The patient also continues on sildenafil for pulmonary hypertension. Her last echo on record is from November 2021 estimate in in high normal pulmonary pressures suggesting that the medication is adequate. At some point which repeat her echocardiogram. 12/26/2023 the patient is here for a pulmonary follow-up visit. The patient is doing well. She continues on the oxygen with good effect. She also continues on the sildenafil 3 times a day. She continues with respiratory therapy. She still gets shortness of breath with activity. But is at baseline. She needs to get an echocardiogram hopefully get 1 prior to her next visit. She is using her CPAP. The CPAP therapy has been affecting beneficial when she does use it every night. We did download her machine is AHI is less than 1. The patient has pressure are adequate. Therefore she will continue the CPAP therapy at the current settings. She will continue with respiratory therapy. She will follow-up in a 6 months' time with the echocardiogram. If the patient has any issues prior to that she will call for an earlier assessment. 06/28/2024 the patient is here for a pulmonary follow-up visit. Overall she is doing well. She did get her new APAP currently 6-16. We did download the data. Her AHI is 0.4. Average pressure is around 12. And it does go up to 16 on the maximum pressure of the machine. But right now seems like her sleep apnea is well treated with current PAP settings. Although she gets a very dry mouth. She does use a fullface mask but her temperature is too high and she is running out of water. I did remotely decrease her temperature of the dish from 80 degrees F to 68. Kept humidity at 4. She is going to see if that works better. In addition to that she continues with her sildenafil 20 mg t.i.d.. Her last echo back in January demonstrated that she still has moderate pulmonary hypertension. Otherwise she is doing okay she does not feel like she is getting any worse. Will plan to keep her on that dose although will repeat the echocardiogram in the fall. If he has any worsening symptoms we can also consider either increasing the sildenafil or adding a 2nd agent. Although because of her underlying respiratory issues and her diastolic dysfunction I worry that too much basal dilation of the pulmonary vasculature will result in increased end diastolic pressures. [facility] Medical History (System 04/18/23 @ 15:41 by Sheron Holden) Palpitations RIP on CPAP COPD (chronic obstructive pulmonary disease) Pulmonary hypertension Social History (Updated 06/28/24 @ 15:25 by Vanessa Colón CMA) Patient Tobacco Use Status: Former Tobacco user Review of Systems Const Denies night sweats ENT Denies change in voice, Denies lip swelling, Denies mouth pain, Reports nasal congestion, Reports nasal discharge and Denies tongue swelling Card Denies chest pain and Reports dyspnea on exertion Resp Reports cough, Reports dyspnea on exertion and Denies wheezing GI Denies abdominal pain Musc Denies no additional complaints Neuro Denies Neuro-related abnormal movements Psych Denies no additional complaints Winston/Lymph Denies easy bleeding and Denies lymphadenopathy Aller/Immun Denies lip swelling, Denies tongue swelling and Denies wheezing Physical Exam Vital Signs: Last Vital Signs Pulse 76 06/28/24 15:22 BP 134/76 06/28/24 15:22 Pulse Ox 83 L 06/28/24 15:22 Oxygen Delivery Method Room Air 06/28/24 15:22 BMI result Body Mass Index 35.7 Const General: alert Neck Neck: Yes normal visual inspection, Yes full ROM and Yes no lymphadenopathy Chest Chest palpation & inspection: normal inspection of the chest Resp Effort & Inspection: normal respiratory effort Auscultation: no wheezes and diminished lung sounds Cardio Rate: regular rate Rhythm: regular rhythm Heart sounds: S1 normal heart sound present and S2 normal heart sound present GI Palpation (GI): Soft to palpation and nontender Auscultation: normal bowel sounds Skin General skin exam: rashes and/or lesions noted Assessment & Plan Assessment & Plan (1) RIP on CPAP: Code(s): G47.33 - Obstructive sleep apnea (adult) (pediatric); Z99.89 - Dependence on other enabling machines and devices Category: Medical (2) COPD (chronic obstructive pulmonary disease): Code(s): J44.9 - Chronic obstructive pulmonary disease, unspecified Category: Medical Qualifiers: COPD type: chronic bronchitis Chronic bronchitis type: simple Qualified Code(s): J41.0 - Simple chronic bronchitis (3) Pulmonary hypertension: Comment: better Code(s): I27.20 - Pulmonary hypertension, unspecified Category: Medical (4) Palpitations: Code(s): R00.2 - Palpitations Category: Medical Plan continue conserving tank oxygen 3L pulse with rest and activity continue Breo ANNALISE as needed continue Sildenafil 20mg TID APAP 6-16 at night with oxygen. temp 80->68 hum 4 ECHO for the next visit F/U 6 months Orders: Orders CA echo transthoracic complete 7 Months I27.20 - Pulmonary hypertension, unspecified Coding Level of Care Code Est Pt Level 4 (80468) Complex EM visit Add On G2211 Diagnoses RIP on CPAP G47.33; Z99.89 Simple chronic bronchitis J41.0 COPD type: chronic bronchitis Chronic bronchitis type: simple Pulmonary hypertension I27.20 Palpitations R00.2 Time Spent (min) 17
--- OUTSIDE RECORDS SUMMARY | 2024-06-28 15:23 | XMS_ITS | Encounter Summary ---
Author Organization [facility] Address [address] [place] [address] Care Team Providers Care Director Data Management Name Role Phone Sujit Vogel DO Primary Care Provider [phone] Encounter Details Date Type Department Care Team (Late st Contact Info) Description 03/07/2024 12:50 PM EDT Hospital Encounter TH HISTORIC ENCOUNTERS EASTERN CONVERSION ONLY Jovanni Salter MD [address] [place] [address] Social History Tobacco Use Types Packs/Day Years Used Date Smoking Tobacco: Former Cigarettes Q uit: 05/29/2009 Smokeless Tobacco: Never Alcohol Use Standard Drinks/Week Comments No 0 (1 standard drink = 0.6 oz pur e alcohol) Sex and Gender Information Value Date Recorded Sex Assigned at Not on file Gender Identity Not on file Sexual Orientation Not on file Job Start Date Occupation Industry Not on file Not on file Not on file documented as of this [...] is a 78 y.o. female. HPI: 78-year-old -[place] female who had stage I hormone positive [...] patient had further workup and diagnosed with ER/NH positive HER-2/darby negative infiltrating ductal carcinoma Patient [...] (three) times aday., Disp: , Rfl: ??? 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
--- OUTSIDE RECORDS SUMMARY | 2024-06-28 15:23 | XMS_ITS | Clinical Summary ---
Author Organization [facility] Address [address] [place] [address] Care Team Providers Care Union Organizer Name Role Phone Sujit Vogel MD Primary Care Provider [phone] Allergies Active Allergy Reactions Criticality Noted Date Comments Egg-Derived Products 11/10/2016 Medications Medication Sig Dispensed Refills Start Date End Date Status duloxetine (CYMBALTA) DR capsule 60 mg Take 1 capsule (60 mg total) by mouth daily. 0 Active traZODone (DESYREL) 100 MG tablet Take 1 tablet (100 mg total) by mouth every night at bedtime. 0 Active gabapentin (NEURONTIN) 300 MG capsule Take 1 capsule (300 mg total) by mouth 3 (three) times a day. 0 Active oxybutynin (DITROPAN) 5 MG tablet Take 1 tablet (5 mg total) by mouth 3 (three) times a day. 0 Active fluticasone-vilantero l (BREO ELLIPTA) 100-25 MCG/INH inhaler 1 inhalation. by Inhaled route daily. 0 Active albuterol (PROAIR HFA) 108 (90 Base) MCG/ACT inhaler Inhale 2 puffs into the lungs every 6 (six) hours as needed for wheezing. 0 Active potassium chloride ER (K-DUR,KLOR-CON) tablet 20 mEq Take 1 tablet (20 mEq total) by mouth 2 (two) times a day. 0 Active sildenafil (VIAGRA) 25 MG tablet Take 1 tablet (25 mg total) by mouth daily as needed for erectile dysfunction. 0 Active amLODIPine (NORVASC) tablet 5 mg Take 1 tablet (5 mg total) by mouth daily. 0 Active spironolactone (ALDACTONE) tablet 25 mg Take 1 tablet (25 mg total) by mouth daily. 0 Active furosemide (LASIX) 20 MG tablet Take 1 tablet (20 mg total) by mouth 2 (two) times a day. 0 Active Qkqg-Yrxal-PED-Boswel trupti-Vit D (GLUCOSAMINE CHOND TRIPLE/VIT D PO) Take by mouth. 0 Acti ve vitamin D3 (VITAMIN D3) 25 MCG (1000 UT) tablet Take 1 tablet (1,000 Units total) by mouth daily. 0 Active magnesium oxide 400 (240 Mg) MG TABS tablet Take 1 tablet (400 mg total) by mouth 2 (two) times a day. 0 Active evolocumab (REPATHA) 140 MG/ML SC injection Inject 1 mL (140 mg total) under the skin once. Every 14 days 0 Active Active Problems No known active problems Family History Medical History Relation Name Comments Cancer Maternal Grandmother breast ca. Relation Name Status Comments Maternal Grandmother Social History Tobacco Use Types Packs/Day Years Used Date Smoking Tobacco: Former Smokeless Tobacco: Never Alcohol Use Standard Drinks/Week Comments No 0 (1 standard drink = 0.6 oz pur e alcohol) Sex and Gender Information Value Date Recorded Sex Assigned at Not on file Gender Identity Not on file Sexual Orientation Not on file Job Start Date Occupation Industry Not on file Not on file Not on file Last Filed Vital Signs Vital Sign Reading Time Taken Comments Blood Pressure 124/46 03/07/2024 1:07 PM EDT Pulse 79 03/07/2024 1:07 PM EDT Temperature 36.7 ??C (98.1 ??F) 03/07/2024 1:07 PM ED T Respiratory Rate - - Oxygen Saturation 89% 03/07/2024 1:07 PM EDT Inhaled Oxygen Concentration - - Weight 100.7 kg (222 lb) 03/07/2024 1:07 PM EDT Height 170.2 cm (5' 7 ) 03/07/2023 1:05 PM EDT Body Mass Index 34.77 03/07/2023 1:05 PM EDT Plan of Treatment Health Maintenance Due Date Last Done Comments Hepatitis C Screening 1945 COVID-19 Vaccine (#1) 1952 Pneumococcal Vaccine (1 of 2 - PCV) 1953 Depression Screening 1959 Preventative Health Evaluation 1965 DTap / Tdap / Td (1 - Tdap) 1966 Shingrix-Zoster Vaccine (1 of 2) 1966 Fall Risk Assessment 2012 Osteoporosis Screening (DEXA Scan) 2012 RSV Adult > 60+ Yrs or Pregn ant (1 - 1-dose 75+ series) 2022 Influenza Vaccine (#1) 2024 Hepatitis B Vaccines Aged Out No long er eligible based on patient's age to complete this topic RSV Ped < 20 months Aged Out No longe r eligible based on patient's age to complete this topic Care Teams Union Organizer Relationship Specialty Start Date End Date Sujit Vogel MD [address] [place] [address] [employer] [place] [place] [address] PCP - General Internal Medicine 09/01/21
--- OUTSIDE RECORDS SUMMARY | 2024-06-28 15:23 | XMS_ITS | Clinical Summary ---
Author Organization Patient Business Ser [facility] Address [address] [place] [address] Care Team Providers Care Outreach Manager Name Role Phone Sujit Vogel DO Primary Care Provider [phone] Encounters Date Type Department Care Team Description 04/08/2024 1:34 PM EST - 04/08/2024 11:59 PM EST Hospital [facility]counter [facility] [address] [phone] Encounter for screening mammogram for breast cancer Discharge Disposition: Home or Self Care from Last 3 Months Surgical History Surgery Date Site/Laterality Comments BREAST BIOPSY PROCEDURE: BX BREAST; PERC NEEDLE CORE W/IMAG GUID BREAST LUMPECTOMY 2016 PROCEDURE: HISTORICAL BREAST LUMPECTOMY; COMMENT: infilatrating ductal carcinoma COLONOSCOPY PROCEDURE: HISTORICAL COLONOSCOPY; COMMENT: remote, nml per patient Medical History Medical History Date Comments Hypertension 04/23/2017 DX:Hypertension Hyperlipidemia 04/23/2017 DX:Hyperlipidemi a Breast cancer (CMS/HCC) 10/13/2016 DX:Breas t cancer (HCC) Urinary incontinence DX:Urinary incontinence Breast cancer (CMS/HCC) DX:Breas t cancer (HCC) Hypertension DX:Hypertension Family History Medical History Relation Name Comments Colon cancer Aunt mat Diabetes Brother type 2 Hypertension Brother Other: HLD Brother Heart attack Father Hypertension Father Other: HLD Father Stroke Father Breast cancer Maternal Grandmother Cancer Maternal Grandmother breast ca. Diabetes Mother type 2 Hypertension Mother Other: HLD Mother Hypertension Sister Other: HLD Sister Ovarian cancer Neg Hx Relation Name Status Comments Aunt mat Alive Brother Father Maternal Grandmother Mother Sister Social History Tobacco Use Types Packs/Day Years [...] file Not on file Not on file Obstetrics History Last Filed Vital Signs Vital Sign Reading Time Taken Comments Blood Pressure 124/46 03/07/2024 1:07 PM EDT Sitting Right arm Pulse 79 03/07/2024 1:07 PM EDT Temperature - - Respiratory Rate - - Oxygen Saturation - - Inhaled Oxygen Concentration - - Weight 99.8 kg (220 lb) 04/08/2024 2:02 PM EST Height 170.2 cm (5' 7 ) 04/08/2024 2:02 PM EST Body Mass Index 34.46 04/08/2024 2:02 PM EST Plan of Treatment Upcoming Encounters Date Type Department Care Team (Late st Contact Info) Description 03/10/2025 1:15 PM EDT Office Visit [facility] Hematology Oncology [address] [place] [phone] Candida Salter MD [address] [place] [address] Health Maintenance Due Date Last Done Comments DTaP,Tdap,and Td Vaccines (1 - Tdap) 1966 Zoster Vaccines (1 of 2) 1966 Cholesterol Screening (Lipid Panel) 10/20/2021 Depression Screening 10/20/2021 Falls Risk Assessment 10/20/2021 Hepatitis C Screening 10/20/2021 Social Influencers of Health Screening 10/20/2021 RSV Immunization Patients 60+ Years Old (1 - 1-dose 75+ series) 2022 Medicare Annual Wellness Visit 12/23/2022 12/23/2021 Hypertension/CHF/CAD Annual BMP Blood Test 05/02/2025 05/02/2024 Osteoporosis Screening (Bone Density Screening) 08/15/2027 08/14/2017 Hepatitis B Vaccines Completed 06/21/2018, 01/12/2018, 12/12/2017 Pneumococcal Vaccine: 65+ Years Completed 04/13/2023 COVID-19 Vaccine Completed 02/19/2024, , 02/14/2022, Additional history exists Influenza Vaccine Completed 02/19/2024, , 02/28/2022, Additional history exists Breast Cancer Screening Discontinued 04/08/20, 04/07/2023, 03/25/2021, Additional history exists HIB Vaccines Aged Out No longer eligi ble based on patient's age to complete this topic HPV Vaccines Aged Out No longer eligi ble based on patient's age to complete this topic Hepatitis A Vaccines Aged Out No long er eligible based on patient's age to complete this topic IPV Vaccines Aged Out No longer eligi ble based on patient's age to complete this topic MMR Vaccines Aged Out No longer eligi ble based on patient's age to complete this topic Meningococcal ACWY Vaccine Aged Out N o longer eligible based on patient's age to complete this topic RSV Immunization Patients Under 20 months Aged Out No longer eligible based on patient's age to complete this topic Varicella Vaccines Aged Out No longer eligible based on patient's age to complete this topic Procedures Procedure Name Priority Date/Time Associated Diagnosis Comments MAGNESIUM Routine 05/02/2024 2:15 PM EST Obstructive sleep apnea (adult) (pediatric) Right heart failure (CMS/HCC) BASIC METABOLIC PANEL Routine 05/02/2024 2:15 PM EST Obstructive sleep apnea (adult) (pediatric) Right heart failure (CMS/HCC) MG MAMMO DIGITAL SCREENING W EMMANUEL BILAT Routine 04/08/2024 2:22 PM EST Encounter for screening mammogram for breast cancer SARAH DEXA AXIAL SKELETON Routine 08/14/2017 2:18 PM EDT Encounter for screening for osteoporosis from Last 3 Months or Most Recently Relevant to Health Maintenance Results * Magnesium (05/02/2024 2:15 PM EST) Magnesium 2.1 1.9 - 2.6 mg/dL LAB CHEMISTRY METHOD 05/02/2024 3:13 PM [facility] Blood Venous blood specimen / Unknown Venipuncture / Unknown 05/02/2024 2:15 PM EST 05/02/2024 2:36 PM EST Sujit Vogel DO LAB BLOOD ORDERABLES [facility] [address] [place] [address], * Basic metabolic panel (05/02/2024 2:15 PM EST) Pathologist [facility] Sodium 140 133 - 145 mmol/L LAB CHEMISTRY METHOD 05/02/2024 3:13 PM [facility] Potassium 4.3 3.5 - 5.5 mmol/L LAB CHEMISTRY METHOD 05/02/2024 3:13 PM [facility] Chloride 107 96 - 110 mmol/L LAB CHEMISTRY METHOD 05/02/2024 3:13 PM [facility] CO2 29 21 - 32 mmol/L LAB CHEMISTRY METHOD 05/02/2024 3:13 PM [facility] Anion Gap 4 3 - 11 LAB CHEMISTRY METHOD 05/02/2024 3:13 PM [facility] Glucose 86 70 - 100 mg/dL LAB CHEMISTRY METHOD 05/02/2024 3:13 PM [facility] BUN 12 5 - 25 mg/dL LAB CHEMISTRY METHOD 05/02/2024 3:13 PM [facility] Creatinine 0.93 0.50 - 1.10 mg/dL LAB CHEMISTRY METHOD 05/02/2024 3:13 PM [facility] eGFR 63 >=60 mL/min/1. 73m2 LAB CHEMISTRY METHOD 05/02/2024 3:13 PM EST [facility] Comment:Calculation based on the??Chronic Kidney Disease Epidemiology Collaboration (CKD-EPI) equation refit??without adjustment for race. BUN/Creatinine Ratio 12.9 LAB CHEMISTRY METHOD 05/02/2024 3:13 PM EST [facility] Calcium 9.7 8.5 - 10.5 mg/dL LAB CHEMISTRY METHOD 05/02/2024 3:13 PM EST [facility] Blood Venous blood specimen / Unknown Venipuncture / Unknown 05/02/2024 2:15 PM EST 05/02/2024 2:36 PM EST Sujit Vogel DO LAB BLOOD ORDERABLES [facility] [address] [place] [address], * MG Mammo Digital Screening w Emmanuel bilat (04/08/2024 2:22 PM EST) Anatomical Region Laterality Modality Breast Bilateral Mammography 04/08/2024 5:27 PM EST Impressions 04/08/2024 5:30 PM EST Stable mammographic appearance of the breasts, including lumpectomy changes in the right breast. No evidence of malignancy is seen. A negative mammogram in the presence of a clinically suspicious palpable abnormality does not preclude the possibility of malignancy or alter the indications for biopsy. BI-RADS CATEGORY: 2 - BENIGN RECOMMENDATION: Screening bilateral mammogram is recommended in 1 year. Mammo Location: [facility], [address] [place], [place], [address], . -------- FINAL REPORT -------- Dictated By: Emilee Granger Dictated Date: 04/08/2024 17:27 ET Assigned Physician: Emilee Granger Reviewed and Electronically Signed By: Emilee Granger Signed Date: 04/08/2024 17:30 ET Workstation ID: [id number] Transcribed By: Self Edit Transcribed Date: 04/08/2024 17:27 ET Narrative 04/08/2024 5:30 PM EST HISTORY: Screening. Personal history of right breast carcinoma treated with lumpectomy in 2016 followed by radiation treatment. Prior excisional biopsies of the left breast, pathology benign. Maternal grandmother had breast carcinoma. COMPARISON: 04/07/23, 04/04/22, 03/25/21 ?? TECHNIQUE: Bilateral digital breast tomosynthesis was performed in the CC and MLO projections. Computer aided detection with [employer] AI 3D 3.1 was employed. BREAST DENSITY: B - There are scattered areas of fibroglandular density. FINDINGS: Skin scars are noted on the upper left breast (2) and on the lateral right breast (1) by the technologist. Right breast: Focal asymmetry with coarse, dystrophic calcification is again seen in the posterolateral right breast, consistent with the lumpectomy scar. There is mild thickening and retraction of the overlying skin, unchanged. There is also diffuse skin thickening of the right breast, stable from previous. A biopsy marker is seen adjacent to the lumpectomy scar. No suspicious masses or grouped microcalcifications are seen. There is no developing architectural distortion. The vascularity is unremarkable. Left breast: No suspicious masses, grouped microcalcifications, or areas of architectural distortion are seen. The vascularity is unremarkable. Procedure Note Emilee Granger MD - 04/08/2024 HISTORY: Screening. Personal history of right breast carcinoma treatedwith lumpectomy in 2016 followed by radiation treatment. Prior excisionalbiopsies of the left breast, pathology benign. Maternal grandmother hadbreast carcinoma. COMPARISON: 04/07/23, 04/04/22, 03/25/21 TECHNIQUE: Bilateral digital breast tomosynthesis was performed in the CCand MLO projections. Computer aided detection with [employer] AI 3D 3.1was employed. BREAST DENSITY: B - There are scattered areas of fibroglandular density. FINDINGS: Skin scars are noted on the upper left breast (2) and on the lateral rightbreast (1) by the technologist. Right breast: Focal asymmetry with coarse, dystrophic calcification is again seen in theposterolateral right breast, consistent with the lumpectomy scar. There ismild thickening and retraction of the overlying skin, unchanged. There isalso diffuse skin thickening of the right breast, stable from previous. Abiopsy marker is seen adjacent to the lumpectomy scar. No suspicious masses or grouped microcalcifications are seen. There is nodeveloping architectural distortion. The vascularity is unremarkable. Left breast: No suspicious masses, grouped microcalcifications, or areas ofarchitectural distortion are seen. The vascularity is unremarkable. IMPRESSION: Stable mammographic appearance of the breasts, including lumpectomychanges in the right breast. No evidence of malignancy is seen. A negative mammogram in the presence of a clinically suspicious palpableabnormality does not preclude the possibility of malignancy or alter theindications for biopsy. BI-RADS CATEGORY: 2 - BENIGN RECOMMENDATION: Screening bilateral mammogram is recommended in 1 year. Mammo Location: [facility], [address] [place] [address], [id number], . -------- FINAL REPORT -------- Dictated By: Emilee Granger Dictated Date: 04/08/2024 17:27 ET Assigned Physician: Emilee Granger Reviewed and Electronically Signed By: Emilee Granger Signed Date: 04/08/2024 17:30 ET Workstation ID: [id number] Transcribed By: Self Edit Transcribed Date: 04/08/2024 17:27 ET Sujit Vogel DO IMG BI PROCEDURES * SARAH DEXA AXIAL SKELETON (08/14/2017 2:18 PM EDT) Anatomical Region Laterality Modality Mammography 08/14/2017 1:24 PM EDT Narrative 08/14/2017 2:18 PM EDT [facility] Diagnostic Imaging Department [address] [place] [id number] Patient: ??CELESTE SOLORZANO ?/Age/Sex: 1945 72 - F Unit#: ??[id number] ? Location/Status: ??SPDIMAM/REG CLI ? Mnemonic/Ordering Site: ??MAMDEXAAX/SPMAM Ordering Physician: ??CANDIDA SALTER MD Sarah Dexa Axial Skeleton - 08/14/17 - 3 HISTORY: ??The patient is a 72-year-old postmenopausal female with clinical concern for metabolic bone disease. FINDINGS: ??Dual energy x-ray absorptiometry of the lumbar spine and femurs is performed. The mean bone mineral density at L1-3 is 1.055 gm/cm2 which is 90% of that of young normals and 89% of that of age matched controls. This yields a T- score of -1.0 and a Z-score of -1.1 and there is therefore no evidence of osteoporosis or osteopenia here. The mean bone mineral density of the femurs bilaterally is 0.972 gm/cm2 which is 96% of that of young normals and 93% of that of age matched controls. ??This yields a T-score of -0.3 and a Z-score of -0.6 and there is therefore no evidence of osteoporosis or osteopenia here. However, the T-score of the right femoral neck is -1.3 and that of the left femoral neck is -1.6 which is diagnostic of osteopenia. IMPRESSION: 1. Osteopenia. ??There has been a decrease of 2.0% in bone mineral density in the lumbar spine since the prior examination of 08/10/2016. ??There has been a decrease of 3.3% in bone mineral density in the right femur and a decrease of 3.0% in bone mineral density in the left femur. 2. FRAX analysis yields a 10-year probability of major osteoporotic fracture of 3.8% and a 10-year probability of hip fracture of 0.5%. Code 44664 Dictating Physician: ??STERLING SANDOVAL MD Electronically Signed by: ??STERLING SANDOVAL MD Dic Date/Time: ??08/14/17 141 Sign date/Time: ??08/14/17 1418 Procedure Note Sterling Sandoval MD - 05/17/2022 [facility] Diagnostic Imaging Department [address] [place], [place] [id number] Patient: CELESTE SOLORZANO./Age/Sex: 1945 72 - F Unit#: [id number] [facility] Ordering Physician: CANDIDA SALTER MD [facility] Dexa Axial Skeleton - 08/14/17 - 7246 HISTORY: The patient is a 72-year-old postmenopausal female withclinical concern for metabolic bone disease. FINDINGS: Dual energy x-ray absorptiometry of the lumbar spine and femursis performed. The mean bone mineral density at L1-3 is 1.055 gm/cm2 which is90% of that of young normals and 89% of that of age matched controls. This yieldsa T- score of -1.0 and a Z-score of -1.1 and there is therefore no evidenceof osteoporosis or osteopenia here. The mean bone mineral density of the femurs bilaterally is 0.972 gm/pw4rdhjh is 96% of that of young normals and 93% of that of age matched controls.This yields a T-score of -0.3 and a Z-score of -0.6 and there is therefore no evidence of osteoporosis or osteopenia here. However, the T-score of theright femoral neck is -1.3 and that of the left femoral neck is -1.6 which is diagnostic of osteopenia. IMPRESSION: 1. Osteopenia. There has been a decrease of 2.0% in bone mineral densityin the lumbar spine since the prior examination of 08/10/2016. There has ania decrease of 3.3% in bone mineral density in the right femur and a decreaseof 3.0% in bone mineral density in the left femur. 2. FRAX analysis yields a 10-year probability of major osteoporoticfracture of 3.8% and a 10-year probability of hip fracture of 0.5%. Code 16531 Dictating Physician: STERLING SANDOVAL MD Electronically Signed by: STERLING SANDOVAL MD Dic Date/Time: 08/14/17 1415 Sign date/Time: 08/14/17 1418 Candida Salter MD IMG BI PROCEDURES from Last 3 Months or Most Recently Relevant to Health Maintenance Advance Directives Documents on File Type Date Recorded Patient [employer] Expl anation Health Care Decision (hx) 07/05/2016 AD [place] DIRECTIVE Health Care Decision (hx) 07/05/2016 AD [place] DIRECTIVE Health Care Decision (hx) 07/05/2016 AD [place] DIRECTIVE Health Care Decision (hx) 07/05/2016 AD [place] DIRECTIVE Health Care Decision (hx) 07/05/2016 AD [place] DIRECTIVE Health Care Decision (hx) 07/05/2016 AD [place] DIRECTIVE Health Care Decision (hx) 07/05/2016 AD [place] DIRECTIVE Health Care Decision (hx) 07/05/2016 AD [place] DIRECTIVE Health Care Decision (hx) 07/05/2016 AD [place] DIRECTIVE Health Care Decision (hx) 07/05/2016 AD [place] DIRECTIVE Health Care Decision (hx) 07/05/2016 AD [place] DIRECTIVE Health Care Decision (hx) 07/05/2016 AD [place] DIRECTIVE Health Care Decision (hx) 07/05/2016 AD [place] DIRECTIVE Health Care Decision (hx) 07/05/2016 AD [place] DIRECTIVE Health Care Decision (hx) 07/05/2016 AD [place] DIRECTIVE Health Care Decision (hx) 07/05/2016 AD [place] DIRECTIVE Health Care Decision (hx) 07/05/2016 AD [place] DIRECTIVE Health Care Decision (hx) 07/05/2016 AD [place] DIRECTIVE Health Care Decision (hx) 07/05/2016 AD [place] DIRECTIVE Health Care Decision (hx) 07/05/2016 AD [place] DIRECTIVE Health Care Decision (hx) 07/05/2016 AD [place] DIRECTIVE Health Care Decision (hx) 07/05/2016 AD [place] DIRECTIVE Health Care Decision (hx) 07/05/2016 AD [place] DIRECTIVE Health Care Decision (hx) 07/05/2016 AD [place] DIRECTIVE Care Teams Outreach Manager Relationship Specialty Start Date End Date Sujit Vogel DO PCP - General Internal Medicine 03/02/21
--- OUTSIDE RECORDS SUMMARY | 2024-06-28 15:23 | XMS_ITS | Encounter Summary ---
Author Organization [facility] Address [address] [place] [address] Care Team Providers Care Hvac Operations Technician Name Role Phone Jaspreet Sujit Morrow DO Primary Care Provider [phone] Encounter Details Date Type Department Care Team (Late Contact Info) Description 03/07/2024 1:00 PM EDT Hospital Encounter TH HISTORIC ENCOUNTERS EASTERN CONVERSION ONLY Jovanni Salter MD [address] [place] [address] Social History Tobacco Use Types Packs/Day Years [...] Description 03/10/2025 1:15 PM EDT Office Visit [facility] Hematology Oncology [address] [place] [phone] Jovanni Salter MD [address] [place] [address] documented as of this encounter Visit Diagnoses Not on filedocumented in this encounter Care Teams Hvac Operations Technician Relationship Specialty Start Date End Date Sujit Vogel DO PCP - General Internal Medicine 03/02/21 documented as of this encounter
== END 2024-06-28 15:51 | disposition home or self-care (01) ==
PROVIDERS: PCP Internal Medicine; Visit Provider Hospitalist
DX: G47.33 Obstructive sleep apnea (adult) (pediatric) (principal); Z99.89 Dependence on other enabling machines and devices; J41.0 Simple chronic bronchitis; I27.20 Pulmonary hypertension, unspecified; R00.2 Palpitations
CPT/HCPCS: 99214; G2211

== ENCOUNTER → 2024-06-28 15:21 | Outpatient (BNVA) | payer MEDICARE, SELFPAY | PROVIDERS: PCP Internal Medicine; Visit Provider Hospitalist | DX: J41.0 Simple chronic bronchitis (principal); I27.20 Pulmonary hypertension, unspecified; G47.33 Obstructive sleep apnea (adult) (pediatric); R00.2 Palpitations; Z99.89 Dependence on other enabling machines and devices | CPT/HCPCS: 99212 ==

== ENCOUNTER → 2025-01-28 12:45 | Outpatient (REF) | payer MEDICARE, SELFPAY ==
--- OUTSIDE RECORDS SUMMARY | 2024-03-07 12:50 | XMS_ITS | Encounter Summary ---
Author Organization [facility] Address [address] [place] [address] Care Team Providers Care Internal Combustion Engine Subassembler Name Role Phone JaspreetSujit mendoza Primary Care Provider [phone] Encounter Details Date Type Department Care Team (Late st Contact Info) Description 03/07/2024 12:50 PM EDT Hospital Encounter TH HISTORIC ENCOUNTERS EASTERN CONVERSION ONLY Jovanni Salter MD [address] [place] [phone] Social History Tobacco Use Types Packs/Day Years Used Date Smoking Tobacco: Former Cigarettes Q uit: 05/29/2009 Smokeless Tobacco: Never Alcohol Use Standard Drinks/Week Comments No 0 (1 standard drink = 0.6 oz pur e alcohol) Comments No Sex and Gender Information Value Date Recorded Sex Assigned at Not on file Legal Sex Female 2:37 PM EDT Gender Identity Not on file Sexual Orientation Not on file documented as of this encounter Last Filed Vital Signs Vital Sign Reading Time Taken Comments Blood Pressure 124/46 03/07/2024 1:07 PM EDT Sitting Right arm Pulse 79 03/07/2024 1:07 PM EDT Temperature - - Respiratory Rate - - Oxygen Saturation - - Inhaled Oxygen Concentration - - Weight 101 kg (222 lb) 03/07/2024 1:07 PM EDT Height 170.2 cm (5' 7 ) 03/07/2023 1:05 PM EDT Body Mass Index 34.77 03/17/2023 2:04 PM EDT documented in this encounter Progress Notes * Jovanni Salter MD - 03/07/2024 1:00 PM EDT CHIEF COMPLAINT: Follow-up IDENTIFIER:Celeste Koroma is a 78 y.o. female. 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 resected 7 to 8 years ago, patient took endocrine therapy until 4 years ago, discontinued because of side effect ROS: Has been feeling fair Has chronic arthritic pain, but denies any new unusual aches and pain Denies any breast related complaint Denies any significant GI symptom Denies any significant neurological symptom Oncology History Overview Note Patient had an abnormal screening mammogram ( right breast) in February 2016, patient had further workup and diagnosed with ER/NV positive HER-2/darby negative infiltrating ductal carcinoma Patient underwent lumpectomy with sentinel lymph node dissection by Dr. Mark Perea, she found to have IDC ,T1cN0 pathology, patient have low recurrence score on Oncotype DX Patient underwent radiation therapy, which she finished in early 2016. Patient had difficult time in tolerating anastrozole and Aromasin, so switched to tamoxifen, patient wanted to go back on anastrozole and is restarted on anastrozole in January 2018 Patient discontinue anastrozole in Jun 2018 because of worsening aches and pains, after stopping anastrozole her pain significantly improved so despite her risk of recurrence she decided not to continue adjuvant hormonal therapy CT scan of chest in August 2021 showed no evidence of malignancy, only chronic emphysematous changes PAST MEDICAL HISTORY: Hypertension Neuropathy COPD Hyperactive bladder Breast cancer SOCIAL HISTORY: Social History Tobacco Use ??? Smoking status: Former ??? Smokeless tobacco: Never Substance Use Topics ??? Alcohol use: No FAMILY HISTORY: Family History Problem Relation Age of Onset ??? Cancer Maternal Grandmother breast ca. Family Status Relation Name Status ??? MGM (Not Specified) Current Outpatient Medications: ??? albuterol (PROAIR HFA) 108 (90 Base) MCG/ACT inhaler, Inhale 2 puffs into the lungs every 6 (six) hours as needed for wheezing., Disp: , Rfl: ??? amLODIPine (NORVASC) tablet 5 mg, Take 1 tablet (5 mg total) by mouth daily., Disp: , Rfl: ??? duloxetine (CYMBALTA) DR capsule 60 mg, Take 1 capsule (60 mg total) by mouth daily., Disp: , Rfl: ??? evolocumab (REPATHA) 140 MG/ML SC injection, Inject 1 mL (140 mg total) under the skin once. Every 14 days, Disp: , Rfl: ??? fluticasone-vilanterol (BREO ELLIPTA) 100-25 MCG/INH inhaler, 1 inhalation. by Inhaled route daily., Disp: , Rfl: ??? furosemide (LASIX) 20 MG tablet, Take 1 tablet (20 mg total) by mouth 2 (two) times a day., Disp: , Rfl: ??? gabapentin (NEURONTIN) 300 MG capsule, Take 1 capsule (300 mg total) by mouth 3 (three) times aday., Disp: , Rfl: ??? Uacu-Faitv-QND-Boswellia-Vit D (GLUCOSAMINE CHOND TRIPLE/VIT D PO), Take by mouth., Disp: , Rfl: ??? magnesium oxide 400 (240 Mg) MG TABS tablet, Take 1 tablet (400 mg total) by mouth 2 (two) times a day., Disp: , Rfl: ??? oxybutynin (DITROPAN) 5 MG tablet, Take 1 tablet (5 mg total) by mouth 3 (three) times a day., Disp: , Rfl: ??? potassium chloride ER (K-DUR,KLOR-CON) tablet 20 mEq, Take 1 tablet (20 mEq total) by mouth 2 (two) times a day., Disp: , Rfl: ??? sildenafil (VIAGRA) 25 MG tablet, Take 1 tablet (25 mg total) by mouth daily as needed for erectile dysfunction., Disp: , Rfl: ??? spironolactone (ALDACTONE) tablet 25 mg, Take 1 tablet (25 mg total) by mouth daily., Disp: , Rfl: ??? traZODone (DESYREL) 100 MG tablet, Take 1 tablet (100 mg total) by mouth every night at bedtime., Disp: , Rfl: ??? vitamin D3 (VITAMIN D3) 25 MCG (1000 UT) tablet, Take 1 tablet (1,000 Units total) by mouth daily., Disp: , Rfl: You are allergic to the following Date Reviewed: 03/07/2024 Allergen Reactions Egg-Derived Products Not Noted PHYSICAL EXAM: BP 124/46 (BP Location: Right arm) Pulse 79 Temp 98.1 ??F (36.7 ??C) (Temporal) Wt 100.7 kg (222 lb) SpO2 (!) 89% BMI 34.77 kg/m?? ECOG 0-1 APPEARANCE: Alert and in no acute distress EYES: nonicteric sclera pink conjunctiva ORAL CAVITY: No erythema or exudates NECK: Neck supple, no cervical and supraclavicular adenopathy, HEART: normal S1 and S2 LUNG: clear to auscultation bilaterally BREAST: Healed scar in the outer quadrant of right breast, no discrete palpable mass in either breast LYMPH NODES: No palpable superficial adenopathy ABDOMEN: soft, nontender and no organomegaly appreciated EXTREMITIES: No edema edema tenderness IMPRESSION: SNOMED CT(R) 1. 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 Patient came for yearly follow-up, have no signs symptoms suggestive of recurrence PLAN: Return to office in 1 year Mammogram per recommendation Jovanni Salter MD documented in this encounter Plan of Treatment Upcoming Encounters Date Type Department Care Team (Late st Contact Info) Description 03/10/2025 1:15 PM EDT Office Visit [facility] Hematology Oncology [address] [place] [phone] Jovanni Salter MD [address] [place] [address] 03/14/2025 2:40 PM EDT Office Visit [facility] - [facility] [address] [facility] [address] [place] [phone] Kelly De Guzman, SHAWN [address] [place] [address] [place] [address] documented as of this encounter Visit Diagnoses Not on filedocumented in this encounter Care Teams Internal Combustion Engine Subassembler Relationship Specialty Start Date End Date Sujit Vogel DO PCP - General Internal Medicine 03/02/21 documented as of this encounter
--- OUTSIDE RECORDS SUMMARY | 2024-03-07 13:00 | XMS_ITS | Encounter Summary ---
Author Organization [facility] Address [address] [place] [address] Care Team Providers Care Tieing Machine Operator Name Role Phone JaspreetSujit mendoza Primary Care Provider [phone] Encounter Details Date Type Department Care Team (Late Contact Info) Description 03/07/2024 1:00 PM EDT Hospital Encounter TH HISTORIC ENCOUNTERS EASTERN CONVERSION ONLY Jovanni Salter MD [address] [place] [address] Social History Tobacco Use Types Packs/Day Years [...] on file documented as of this encounter Plan of Treatment Upcoming Encounters Date Type Department Care Team (Late Contact Info) Description 03/10/2025 1:15 PM EDT Office Visit [facility] Hematology Oncology [address] [place] [phone] Jovanni Salter MD [address] [place] [address] 03/14/2025 2:40 PM EDT Office Visit [facility] - [facility] [address] [facility] [address] [place] [address] Kelly De Guzman, SHAWN [address] [place] [address] Dr Gutiérrez [address] [place] [phone] documented as of this encounter Visit Diagnoses Not on filedocumented in this encounter Care Teams Tieing Machine Operator Relationship Specialty Start Date End Date Sujit Vogel DO PCP - General Internal Medicine 03/02/21 documented as of this encounter
--- NOTE | 2025-01-28 12:48 | CA_ITS ---
Transthoracic Echocardiogram Patient (Last, First, Middle): Celeste Koroma A Gender: F Date of : 1945 Age: 79 Procedure Date: 01/28/2025 Procedure Type: Transthoracic Echocardiogram Location: OP Height: 170.18 cm Weight: 103.42 kg BSA: 2.14 m2 Heart Rate: 73 bpm BP: 134 / 76 mmHg Front Office Specialist: SB Referring MD: Josiah Turk MD Symptoms: I27.20 - Pulmonary hypertension, unspecified Study Quality: Adequate ECG Rhythm: Sinus Conclusions: - The left ventricular systolic function is hyperdynamic. The visually estimated ejection fraction is >70%. - No obvious valvular pathology seen on this study. - The right ventricular systolic pressure is 45 mmHg. Mild pulmonary hypertension is present. Findings Left Ventricle Normal left ventricular cavity size. There is mildly increased left ventricular wall thickness. The left ventricular systolic function is hyperdynamic. The visually estimated ejection fraction is >70%. Diastolic function is normal for age. Right Ventricle Normal right ventricular cavity size and systolic function. Atria Both atria are normal in size. Aortic Valve There is a normal trileaflet aortic valve. There is no aortic valve stenosis. There is no aortic valve regurgitation. Mitral Valve There is mild mitral annular calcification. There is no mitral valve regurgitation. There is no mitral valve stenosis. Pulmonic Valve The pulmonic valve is likely normal. Tricuspid Valve There is mild tricuspid valve regurgitation. The right ventricular systolic pressure is 45 mmHg. Mild pulmonary hypertension is present. Great Vessels The asc aorta is normal in size. Venous The inferior vena cava is normal in size and collapses greater than 50% with inspiration. Pericardium/Pleural There is no evidence of pericardial effusion. Prior Study Comparison No significant change compared to prior study dated: 02/13/2024. Recommendations, Care & Conclusions No obvious valvular pathology seen on this study. Measurements 2D Linear Measurements IVSd: 1.08 0.6-0.9/0.6-1.0 cm LVIDd: 4.43 3.9-5.3/4.2-5.9 cm LVIDd Index: 2.07 2.4-3.2/2.2-3.1 cm/m2 LVIDs: 2.83 2.0-3.6 cm LVPWd: 1.09 0.7-1.1 cm LA Diam: 4.40 2.7-3.8/3.0-4.0 cm LAIDs Index: 2.06 1.5-2.3 cm/m2 LV Mass: 208.58 67-162/88-224 g LV Mass Index: 97.47 43-95/49-115 g/m2 LVOT Diam: 2.20 3.0+(-)1.3 cm 2D Systolic Function EF 4C: 79.10 >55% EF 2C: 71.50 >55% EF BiP: 75.60 >55% Mitral Valve MV Pk E: 0.82 MV PK A: 0.76 MV Decel Time: 251.00 E/A: 1.10 E'Lateral: 6.74 E'Medial: 6.42 E/E' Med: 12.80 E/E' Lat: 12.20 PHT: 74.00 MVA PHT: 2.97 Decel Refugio: 3.27 Aortic Valve AoV Pk Marques: 1.63 AoV Pk Grad: 11.00 JOANA: 3.90 LVOT LVOT Pk Marques: 1.58 LVOT Mn Marques: 1.03 LVOT VTI: 0.32 LVOT Pk Grad: 10.00 LVOT Mn Grad: 5.00 LVOT Diam: 2.20 LVOT Area: 3.80 Diastolic Function MV Pk E: 0.82 MV Pk A: 0.76 E/A: 1.10 E'Medial: 6.42 E/E' Med: 12.80 E' Laterial: 6.74 E/E' Lat: 12.20 Right Ventricle TAPSE (mm): 22.40 TVS' Marques: 15.10 Tricuspid Valve TR Pk Marques: 3.24 TR Pk Grad: 42.00 RA Press: 3.00 RVSP: 45.00 Great Vessels Aorta Sinus of Valsalva: 3.00 2.0-3.5 cm Ao Asc: 3.70 2.1-3.4 cm Pulmonary Valve PV Pk Marques: 1.17 Peak PV Grad: 5.00 Updated in Other Vendor System with Status of Final Chris Vazquez MD electronically signed on 01/28/2025 2:17:46 PM with status of Final
--- OUTSIDE RECORDS SUMMARY | 2025-01-28 13:58 | XMS_ITS | Encounter Summary ---
Author Organization [facility] Address [address] [place] [address] Care Team Providers Care Graphic Engineer Name Role Phone Keon Sharpe MD Primary Care Provider Sujit Blum Primary Care Provider Keon Alvarez MD Unavailable Reason for Visit * Reason Onset Date Comments Echocardiogram 04/25/2018 auth Encounter Details Date Type Department Care Team Description 04/25/2018 Telephone Cardiology - [address] [phone] Keon Varghese MD [address] [place] [address] [phone] Echocardiogram (auth) Social History Tobacco Use Types Packs/Day Years Used Date Smoking Tobacco: Former Cigarettes Q uit: 05/29/2009 Smokeless Tobacco: Never Comments:quit 11/2009 Alcohol Use Standard Drinks/Week Comments No 0 (1 standard drink = 0.6 oz pur e alcohol) Sex Assigned at Date Recorded Female 08/29/2023 1:30 PM E DT Job Start Date Occupation Industry Not on file Not on file Not on file documented as of this encounter Miscellaneous Notes * Telephone Encounter - Rajinder Nunes - 04/25/2018 11:07 AM EST Medicare/Medex No auth Req [id number] * Telephone Encounter - Nay Lopez - 04/25/2018 8:30 AM EST Celeste needs to have an DHIRAJ echo done at [facility] and her ins is Medicare and Medex. Does this ins require an auth? documented in this encounter Plan of Treatment Not on file documented as of this encounter Visit Diagnoses Not on filedocumented in this encounter Care Teams Graphic Engineer Relationship Specialty Start Date End Date Keon Sharpe MD PCP - General Internal Medicine 05/15/17 03/01/21 Sujit Vogel PCP - General Internal Medicine 03/02/21 Keon Varghese MD Finishing Machine Tender Cardiovascular Disease 11/01/21 documented as of this encounter
--- OUTSIDE RECORDS SUMMARY | 2025-01-28 13:58 | XMS_ITS | Encounter Summary ---
Author Organization [facility] Address [address] [place] [address] Care Team Providers Care Night Shift Supervisor Name Role Phone Keon Sharpe MD Primary Care Provider Keon Joseph MD Primary Care Provider Sujit Blum Primary Care Provider Keon Alvarez MD Unavailable Encounter Details Date Type Department Care Team Description 11/02/2016 Armored Car Messenger Report Medical Records [address] [place] [id number] Keon Sharpe MD Social History Tobacco Use Types Packs/Day Years [...] as of this encounter Plan of Treatment Not on file documented as of this encounter Visit Diagnoses Not on filedocumented in this encounter Care Teams Night Shift Supervisor Relationship Specialty Start Date End Date Keon Sharpe MD PCP - General Internal Medicine 05/15/17 03/01/21 Keon Sharpe MD PCP - General 04/11/16 05/14/17 Sujit Vogel PCP - General Internal Medicine 03/02/21 Keon Varghese MD Paper Bag Inspector Cardiovascular Disease 11/01/21 documented as of this encounter
--- OUTSIDE RECORDS SUMMARY | 2025-01-28 13:58 | XMS_ITS | Encounter Summary ---
Author Organization [facility] Address [address] [place] [address] Care Team Providers Care Special Agent Secret Service Name Role Phone Keon Sharpe MD Primary Care Provider Keon Joseph MD Primary Care Provider Sujit Blum Primary Care Provider Keon Alvarez MD Unavailable Encounter Details Date Type Department Care Team Description 08/04/2016 Hemodialysis Technician Report Medical Records [address] [place] [id number] Jovanni Salter MD Social History Tobacco Use Types Packs/Day [...] on filedocumented in this encounter Care Teams Special Agent Secret Service Relationship Specialty Start Date End Date Keon Sharpe MD PCP - General Internal Medicine 05/15/17 03/01/21 Keon Sharpe MD PCP - General 04/11/16 05/14/17 Sujit Vogel PCP - General Internal Medicine 03/02/21 Keon Varghese MD Lsat Instructor Cardiovascular Disease 11/01/21 documented as of this encounter
--- OUTSIDE RECORDS SUMMARY | 2025-01-28 13:58 | XMS_ITS | Encounter Summary ---
Author Organization [facility] Address [address] [place] [address] Care Team Providers Care Side Seam Tender Name Role Phone Keon Sharpe MD Primary Care Provider Sujit Blum Primary Care Provider Keon Alvarez MD Unavailable Encounter Details Date Type Department Care Team Description 12/29/2017 Dialysis Social Worker Report Medical Records [address] [place] [id number] Social History Tobacco Use Types Packs/Day Years [...] on filedocumented in this encounter Care Teams Side Seam Tender Relationship Specialty Start Date End Date Keon Sharpe MD PCP - General Internal Medicine 05/15/17 03/01/21 Sujit Vogel PCP - General Internal Medicine 03/02/21 Keon Varghese MD Packaging Line Operator Cardiovascular Disease 11/01/21 documented as of this encounter
--- OUTSIDE RECORDS SUMMARY | 2025-01-28 13:58 | XMS_ITS | Encounter Summary ---
Author Organization [facility] Address [address] [place] [address] Care Team Providers Care Political Science Research Assistant Name Role Phone Keon Sharpe MD Primary Care Provider Sujit Blum Primary Care Provider Keon Alvarez MD Unavailable Encounter Details Date Type Department Care Team Description 04/25/2018 Transfer Records Medical Records [address] [place] [address] Abstract, Provider Social History Tobacco Use Types Packs/Day Years [...] on filedocumented in this encounter Care Teams Political Science Research Assistant Relationship Specialty Start Date End Date Keon Sharpe MD PCP - General Internal Medicine 05/15/17 03/01/21 Sujit Vogel PCP - General Internal Medicine 03/02/21 Keon Varghese MD Drag Out Worker Cardiovascular Disease 11/01/21 documented as of this encounter
--- OUTSIDE RECORDS SUMMARY | 2025-01-28 13:58 | XMS_ITS | Encounter Summary ---
Author Organization [facility] Address [address] [place] [address] Care Team Providers Care Supervisor Metal Placing Name Role Phone Keon Sharpe MD Primary Care Provider Sujit Blum Primary Care Provider Keon Alvarez MD Unavailable Reason for Visit * Reason Onset Date Comments APPOINTMENT 08/29/2017 Encounter Details Date Type Department Care Team Description 08/29/2017 Telephone Pulmonology - [address] [place] [address] Ann Ruffin NP APPOINTMENT Social History Tobacco Use Types Packs/Day Years [...] encounter Miscellaneous Notes * Telephone Encounter - Ann Ruffin NP - 08/29/2017 12:11 PM EDT done * Telephone Encounter - Sindy Ga M.A. - 08/29/2017 9:43 AM EDT Please put in order for 6 minute then will book f/u documented in this encounter Plan of Treatment Pending Results Name Type Priority Associated Diagnoses Date /Time SIX MINUTE WALK Pulmonology STAT Chronic obstructive pulmonary disease, unspecified COPD type (HCC) 09/12/2017 Scheduled Orders Name Type Priority Associated Diagnoses Orde r Schedule SIX MINUTE WALK Pulmonology STAT Chronic obstructive pulmonary disease, unspecified COPD type (HCC) Expected: 08/29/2017, Expires: 08/29/2018 documented as of this encounter Visit Diagnoses Diagnosis Chronic obstructive pulmonary disease, unspecified COPD type (HCC)- Primary documented in this encounter Care Teams Supervisor Metal Placing Relationship Specialty Start Date End Date Keon Sharpe MD PCP - General Internal Medicine 05/15/17 03/01/21 Sujit Vogel PCP - General Internal Medicine 03/02/21 Keon Varghese MD Retail Coordinator Cardiovascular Disease 11/01/21 documented as of this encounter
--- OUTSIDE RECORDS SUMMARY | 2025-01-28 13:58 | XMS_ITS | Encounter Summary ---
Author Organization [facility] Address [address] [place] [address] Care Team Providers Care Director Card Name Role Phone Keon Sharpe MD Primary Care Provider Sujit Blum Primary Care Provider Keon Alvarez MD Unavailable Encounter Details Date Type Department Care Team Description 05/18/2018 Hospital Medical Records [address] [place] [address] Keon Varghese MD [address] [place], [place] [phone] Social History Tobacco Use Types Packs/Day Years Used Date Smoking Tobacco: Former Cigarettes Q uit: 05/29/2009 Smokeless Tobacco: Never Comments:quit 11/2009 Alcohol Use Standard Drinks/Week Comments Not Currently 0 (1 standard drink = 0.6 oz pur e alcohol) Sex Assigned at Date Recorded Female 08/29/2023 1:30 PM E DT Job Start Date Occupation Industry Not on file Not on file Not on file documented as of this encounter Plan of Treatment Not on file documented as of this encounter Visit Diagnoses Not on filedocumented in this encounter Care Teams Director Card Relationship Specialty Start Date End Date Keon Sharpe MD PCP - General Internal Medicine 05/15/17 03/01/21 Sujit Vogel PCP - General Internal Medicine 03/02/21 Keon Varghese MD Locomotive Oiler Cardiovascular Disease 11/01/21 documented as of this encounter
--- OUTSIDE RECORDS SUMMARY | 2025-01-28 13:58 | XMS_ITS | Encounter Summary ---
Author Organization [facility] Address [address] [place] [address] Care Team Providers Care Projection Welding Machine Operator Name Role Phone Sujit Vogel Primary Care Provider [facility] Keon Varghese MD Unavailable Reason for Visit * Reason Onset Date Comments Prior Authorization 03/22/2023 Praluent 150 MG/ML auto-injectors Encounter Details Date Type Department Care Team Description 03/22/2023 Telephone Cardio [facility] [address] [place] [address] Keon Varghese MD [address] [place] [address] [phone] Prior Authorization (Praluent 150MG/ML auto-injectors) Social History Tobacco Use Types Packs/Day Years Used Date Smoking Tobacco: Former Cigarettes Q uit: 05/29/2009 Smokeless Tobacco: Never Comments:quit 11/2009 Alcohol Use Standard Drinks/Week Comments Not Currently 0 (1 standard drink = 0.6 oz pur e alcohol) Sex Assigned at Date Recorded Female 08/29/2023 1:30 PM E DT Job Start Date Occupation Industry Not on file Not on file Not on file COVID-19 Exposure Response Date Recorded In the last 10 days, have yo u been in contact with someone who was confirmed or suspected to have Coronavirus/COVID-19? No / Unsure 03/17/2023 1:49 PM EDT documented as of this encounter Miscellaneous Notes * Telephone Encounter - Altagracia Velasquez R.N. - 03/30/2023 1:24 PM EDT I spoke with Celeste- I explained that the Repatha has been approved, and we are told co-pay should only be $40, but we cannot figure out why it is not going through properly at the pharmacy. I provided her with the auth number and valid dates so she can contact insurance on her own to try to sort it out. She was very appreciative of our efforts and expressed gratitude. * Telephone Encounter - Celeste Camargo - 03/30/2023 12:27 PM EDT Images from the original note were not included. I've been on the phone with the insurance and express [facility] and the pharmacy to figure out whats going on. The appeal has been approved (This information was provided by Staci at [employer] [phone]) Auth Number: [id number] Valid 23 - 03.26.24 I did confirm with the pharmacy that a copy for a one month supply is $263 with the prior auth appeal. I did try to submit for a tier exception unfortunatley that has been denied as well. Please see below. (Appeal was submitted by Kimberlee with [employer] [phone]). I did confirm that Repatha is the preferred to the Praluent Was then transferred to Domenico in customer service and was told its a $40 copay, called back the pharmacy and they are stating that the copay is still $263. Called back and spoke to Mani in customer service at [facility] and she told me the patient is not in the donut hole like was thought by the pharmacy. I was then transferred to Dequan in customer service he confimred that the appeal for the prior auth was approved. * Telephone Encounter - Altagracia Velasquez R.N. - 03/30/2023 11:53 AM EDT Did you hear from them? * Telephone Encounter - Altagracia Velasquez R.N. - 03/29/2023 1:40 PM EDT Thank you. * Telephone Encounter - Celeste Camargo - 03/29/2023 1:06 PM EDT I have not received notification that the medication has been approved so I will reach out to the insurance company. * Telephone Encounter - Altagracia Velasquez R.N. - 03/29/2023 11:15 AM EDT I don't see PA approved, but if this is true, can you help with patient assistance? * Telephone Encounter - Louise Ballard - 03/29/2023 10:56 AM EDT Patient called, the Hawk was approved by her insurance however she can not afford the co pay of about 200 dollars. She would like to know if anything else can be done. Please advise. * Telephone Encounter - Celeste Camargo - 2023 8:38 AM EDT Medication denied, appeal started * Telephone Encounter - Celeste Camargo - 03/22/2023 11:21 AM EDT Praluent 150MG/ML auto-injectors - Denied Praluent is not the preferred drug for the patients insurance. Repatha is the preferred drug, wouldyou be ok switching the medication and if so what strength. documented in this encounter Plan of Treatment Not on file documented as of this encounter Visit Diagnoses Not on filedocumented in this encounter Care Teams Projection Welding Machine Operator Relationship Specialty Start Date End Date Sujit Vogel PCP - General Internal Medicine 03/02/21 Keon Varghese MD Die Cutter Operator Cardiovascular Disease 11/01/21 documented as of this encounter
--- OUTSIDE RECORDS SUMMARY | 2025-01-28 13:58 | XMS_ITS | Encounter Summary ---
Author Organization [facility] Address [address] [place] [address] Care Team Providers Care Housing Quality Standard Inspector Name Role Phone Keon Sharpe MD Primary Care Provider Keon Joseph MD Primary Care Provider Sujit Blum Primary Care Provider Keon Alvarez MD Unavailable Encounter Details Date Type Department Care Team Description 01/17/2017 Business Doc Medical Records [address] [place] [id number] Abstract, Provider Social History Tobacco Use Types [...] on filedocumented in this encounter Care Teams Housing Quality Standard Inspector Relationship Specialty Start Date End Date Keon Sharpe MD PCP - General Internal Medicine 05/15/17 03/01/21 Keon Sharpe MD PCP - General 04/11/16 05/14/17 Jaspreet, Peter J. PCP - General Internal Medicine 03/02/21 Keon Varghese MD Railroad Worker Cardiovascular Disease 11/01/21 documented as of this encounter
--- OUTSIDE RECORDS SUMMARY | 2025-01-28 13:58 | XMS_ITS | Encounter Summary ---
Author Organization [facility] Address [address] [place] [address] Care Team Providers Care Painter Rough Name Role Phone Keon Sharpe MD Primary Care Provider Keon Joseph MD Primary Care Provider Sujit Blum Primary Care Provider Keon Alvarez MD Unavailable Reason for Visit * Reason Comments E-prescribe Rx Request Encounter Details Date Type Department Care Team Description 11/06/2016 Refill General Surgery [address] [place] [address] [phone] Mark Perea MD [address] [place] [address] [phone] E-prescribe Rx Request Social History Tobacco Use Types Packs/Day Years [...] encounter Miscellaneous Notes * Telephone Encounter - Hoa Brooks M.A. - 11/07/2016 8:51 AM EDT No follow up scheduled. Please review. 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
--- OUTSIDE RECORDS SUMMARY | 2025-01-28 13:58 | XMS_ITS | Encounter Summary ---
Author Organization [facility] Address [address] [place] [address] Care Team Providers Care Ground Helper Street Railway Name Role Phone Sujit Vogel Primary Care Provider [facility] Keon Varghese MD Unavailable Encounter Details Date Type Department Care Team Description 08/18/2022 SCAN Medical Records [address] [place] [address] Sujit Vogel Social History Tobacco Use Types Packs/Day Years Used Date Smoking Tobacco: Former Cigarettes Q uit: 05/29/2009 Smokeless Tobacco: Never Comments:quit 11/2009 Alcohol Use Standard Drinks/Week Comments Yes 0 (1 standard drink = 0.6 oz pur e alcohol) occ Sex Assigned at Date Recorded Female 08/29/2023 1:30 PM E DT Job Start Date Occupation Industry Not on file Not on file Not on file documented as of this encounter Plan of Treatment Not on file documented as of this encounter Procedures Procedure Name Priority Date/Time Associated Diagnosis Comments OUTSIDE LAB Routine 08/18/2022 documented in this encounter Results * OUTSIDE LAB (08/18/2022) Provider Abstract LAB documented in this encounter Visit Diagnoses Not on filedocumented in this encounter Care Teams Ground Helper [address] Railway Relationship Specialty Start Date End Date Sujit Vogel PCP - General Internal Medicine 03/02/21 Keon Varghese MD Quality Eng Cardiovascular Disease 11/01/21 documented as of this encounter
--- OUTSIDE RECORDS SUMMARY | 2025-01-28 13:58 | XMS_ITS | Encounter Summary ---
Author Organization [facility] Address [address] [place] [address] Care Team Providers Care Detention Deputy Name Role Phone Keon Sharpe MD Primary Care Provider Keon Joseph MD Primary Care Provider Sujit Blum Primary Care Provider Keon Alvarez MD Unavailable Encounter Details Date Type Department Care Team Description 10/03/2016 Children'S Attendant Report Medical Records [address] [place] [address] Jovanni Salter MD Social History Tobacco Use [...] on filedocumented in this encounter Care Teams Detention Deputy Relationship Specialty Start Date End Date Keon Sharpe MD PCP - General Internal Medicine 05/15/17 03/01/21 Keon Sharpe MD PCP - General 04/11/16 05/14/17 Sujit Vogel PCP - General Internal Medicine 03/02/21 Keon Varghese MD Field Crops Harvest Machine Operator Cardiovascular Disease 11/01/21 documented as of this encounter
--- OUTSIDE RECORDS SUMMARY | 2025-01-28 13:58 | XMS_ITS | Encounter Summary ---
Author Organization [facility] Address [address] [place] [address] Care Team Providers Care Hospitality Housekeeper Name Role Phone Keon Sharpe MD Primary Care Provider Keon Joseph MD Primary Care Provider Sujit Blum Primary Care Provider Keon Alvarez MD Unavailable Encounter Details Date Type Department Care Team Description 02/22/2017 SCAN Medical Records [address] [place] [address] Abstract, Provider Social History Tobacco Use Types [...] Name Priority Date/Time Associated Diagnosis Comments OUTSIDE SLEEP STUDY Routine 02/22/2017 documented in this encounter Results * OUTSIDE SLEEP STUDY (02/22/2017) Provider Abstract PULMONOLOGY documented in this encounter Visit Diagnoses Not on filedocumented in this encounter Care Teams Hospitality Housekeeper Relationship Specialty Start Date End Date Keon Sharpe MD PCP - General Internal Medicine 05/15/17 03/01/21 Keon Sharpe MD PCP - General 04/11/16 05/14/17 Sujit Vogel PCP - General Internal Medicine 03/02/21 Keon Varghese MD Security Installation Sales Technician Cardiovascular Disease 11/01/21 documented as of this encounter
--- OUTSIDE RECORDS SUMMARY | 2025-01-28 13:58 | XMS_ITS | Encounter Summary ---
Author Organization [facility] Address [address] [place] [address] Care Team Providers Care [place]chill Administrator Name Role Phone Keon Sharpe MD Primary Care Provider Sujit Blum Primary Care Provider Keon Alvarez MD Unavailable Encounter Details Date Type Department Care Team Description 05/25/2018 Buttonhole Machine Operator Report Medical Records [address] [place] [phone] Keon Sharpe MD Social History Tobacco Use [...] on filedocumented in this encounter Care Teams [place] Administrator Relationship Specialty Start Date End Date Keon Sharpe MD PCP - General Internal Medicine 05/15/17 03/01/21 Sujit Vogel PCP - General Internal Medicine 03/02/21 Keon Varghese MD Porter Luggage Cardiovascular Disease 11/01/21 documented as of this encounter
--- OUTSIDE RECORDS SUMMARY | 2025-01-28 13:58 | XMS_ITS | Encounter Summary ---
Author Organization [facility] Address [address] [place] [address] Care Team Providers Care Plasterer Spot Name Role Phone Keon Sharpe MD Primary Care Provider Keon Joseph MD Primary Care Provider Sujit Blum Primary Care Provider Keon Alvarez MD Unavailable Encounter Details Date Type Department Care Team Description 02/17/2017 Business Doc Medical Records [address] [place] [id number] Abstract, Provider Social History Tobacco Use Types [...] on filedocumented in this encounter Care Teams Plasterer Spot Relationship Specialty Start Date End Date Keon Sharpe MD PCP - General Internal Medicine 05/15/17 03/01/21 Keon Sharpe MD PCP - General 04/11/16 05/14/17 Jaspreet, Peter J. PCP - General Internal Medicine 03/02/21 Keon Varghese MD Horse Trainer Cardiovascular Disease 11/01/21 documented as of this encounter
--- OUTSIDE RECORDS SUMMARY | 2025-01-28 13:58 | XMS_ITS | Encounter Summary ---
Author Organization [facility] Address [address] [place] [address] Care Team Providers Care Composing Room Supervisor Name Role Phone Sujit Vogel Primary Care Provider [facility] Keon Varghese MD Unavailable Encounter Details Date Type Department Care Team Description 03/17/2023 SCAN Medical Records [address] [place] [address] Sujit Vogel Social History Tobacco Use Types [...] PM EDT documented as of this encounter Plan of Treatment Not on file documented as of this encounter Visit Diagnoses Not on filedocumented in this encounter Care Teams Composing Room Supervisor Relationship Specialty Start Date End Date Sujit Vogel PCP - General Internal Medicine 03/02/21 Keon Varghese MD Hose Finisher Cardiovascular Disease 11/01/21 documented as of this encounter
--- OUTSIDE RECORDS SUMMARY | 2025-01-28 13:59 | XMS_ITS | Encounter Summary ---
Author Organization [facility] Address [address] [place] [address] Care Team Providers Care Rotor Casting Machine Operator Name Role Phone Keon Sharpe MD Primary Care Provider Keon Joseph MD Primary Care Provider Sujit Blum Primary Care Provider Keon Alvarez MD Unavailable Reason for Visit * Reason Onset Date Comments Medication 04/20/2016 Encounter Details Date Type Department Care Team Description 04/20/2016 Telephone General Surgery [address] [place] [address] [phone] Mark Perea MD [address] [place] [address] [phone] Medication Social History Tobacco Use Types Packs/Day Years [...] Miscellaneous Notes * Telephone Encounter - Ann Tamayo L.P.N. - 04/20/2016 1:07 PM EST Spoke to patient to clarify that 2 separate referrals were made and the medical oncologist will be the one to prescribe medication based on type of cancer. I asked her to call us if she doesn't hear from the appt dates mid next week. Follow up with Dr Perea in 6 months or as needed. * Telephone Encounter - Debi Jensen - 04/20/2016 12:48 PM EST Pt called stating that she was supposed to get an Rx from , pt couldn't remember the name but she said it is for her hormone and she is supposed to be taking it for 6 yrs. Pt did not get an Rx. Please review. Pt can be reached at [phone]. documented in this encounter Plan of Treatment Not on file documented as of this encounter Visit Diagnoses Not on filedocumented in this encounter Care Teams Rotor Casting Machine Operator Relationship Specialty Start Date End Date Keon Sharpe MD PCP - General Internal Medicine 05/15/17 03/01/21 Keon Sharpe MD PCP - General 04/11/16 05/14/17 Sujit Vogel PCP - General Internal Medicine 03/02/21 Keon Varghese MD Caramel Maker Cardiovascular Disease 11/01/21 documented as of this encounter
--- OUTSIDE RECORDS SUMMARY | 2025-01-28 13:59 | XMS_ITS | Encounter Summary ---
Author Organization [facility] Address [address] [place] [address] Care Team Providers Care Protective Signal Operator Name Role Phone Keon Sharpe MD Primary Care Provider Keon Joseph MD Primary Care Provider Sujit Blum Primary Care Provider Keon Alvarez MD Unavailable Encounter Details Date Type Department Care Team Description 05/05/2017 Transfer Records Medical Records [address] [place] [id number] Abstract, Provider Social History Tobacco Use Types [...] on filedocumented in this encounter Care Teams Protective Signal Operator Relationship Specialty Start Date End Date Keon Sharpe MD PCP - General Internal Medicine 05/15/17 03/01/21 Keon Sharpe MD PCP - General 04/11/16 05/14/17 Jaspreet, Peter J. PCP - General Internal Medicine 03/02/21 Keon Varghese MD Quality Assurance Monitor Body Cardiovascular Disease 11/01/21 documented as of this encounter
--- OUTSIDE RECORDS SUMMARY | 2025-01-28 13:59 | XMS_ITS | Encounter Summary ---
Author Organization [facility] Address [address] [place] [address] Care Team Providers Care Community Artist Name Role Phone Keon Sharpe MD Primary Care Provider Keon Joseph MD Primary Care Provider Sujit Blum Primary Care Provider Keon Alvarez MD Unavailable Encounter Details Date Type Department Care Team Description 05/19/2016 Director Of Instructional Technology Report Medical Records [address] [place] [address] Jovanni Salter MD Social History Tobacco Use [...] on filedocumented in this encounter Care Teams Community Artist Relationship Specialty Start Date End Date Keon Sharpe MD PCP - General Internal Medicine 05/15/17 03/01/21 Keon Sharpe MD PCP - General 04/11/16 05/14/17 Sujit Vogel PCP - General Internal Medicine 03/02/21 Keon Varghese MD Software Clerk Cardiovascular Disease 11/01/21 documented as of this encounter
--- OUTSIDE RECORDS SUMMARY | 2025-01-28 13:59 | XMS_ITS | Encounter Summary ---
Author Organization [facility] Address [address] [place] [address] Care Team Providers Care Icing And Glaze Maker Name Role Phone Sujit Vogel Primary Care Provider Keon Alvarez MD Unavailable Encounter Details Date Type Department Care Team Description 12/08/2021 Telephone Cardio [facility] [address] [place] [phone] Keon Varghese MD [address] [place] [address] [phone] Social History Tobacco Use Types Packs/Day Years [...] encounter Miscellaneous Notes * Telephone Encounter - Keon Varghese MD - 12/08/2021 4:59 PM EDT Celeste had an echo at [facility] 0n 12/06,Not sure why documented in this encounter Plan of Treatment Not on file documented as of this encounter Visit Diagnoses Not on filedocumented in this encounter Care Teams Icing And Glaze Maker Relationship Specialty Start Date End Date Sujit Vogel PCP - General Internal Medicine 03/02/21 Keon Varghese MD Otr Van Cdl Truck Driver Cardiovascular Disease 11/01/21 documented as of this encounter
--- OUTSIDE RECORDS SUMMARY | 2025-01-28 13:59 | XMS_ITS | Encounter Summary ---
Author Organization [facility] Address [address] [place] [address] Care Team Providers Care Pump Operator Name Role Phone Celeste Lainez Primary Care Provider Keon Sexton MD Primary Care Provider Keon Joseph MD Primary Care Provider Sujit Blum Primary Care Provider Keon Alvarez MD Unavailable Encounter Details Date Type Department Care Team Description 02/17/2016 Business Doc Medical Records [address] [place] [address] Abstract, Provider Social History Tobacco Use Types [...] on filedocumented in this encounter Care Teams Pump Operator Relationship Specialty Start Date End Date Celeste Lainez PCP - General Internal Medicine 03/01/12 04/10/16 Keon Sharpe MD PCP - General Internal Medicine 05/15/17 03/01/21 Keon Sharpe MD PCP - General 04/11/16 05/14/17 Sujit Vogel PCP - General Internal Medicine 03/02/21 Keon Varghese MD Drilling Machine Operator Cardiovascular Disease 11/01/21 documented as of this encounter
--- OUTSIDE RECORDS SUMMARY | 2025-01-28 13:59 | XMS_ITS | Encounter Summary ---
Author Organization [facility] Address [address] [place] [address] Care Team Providers Care Surgery Technician Name Role Phone Keon Sharpe MD Primary Care Provider Sujit Blum Primary Care Provider Keon Alvarez MD Unavailable Encounter Details Date Type Department Care Team Description 09/18/2018 Structural Iron Worker Report Medical Records [address] [place] [address] Keon Sharpe MD Social History Tobacco Use [...] on filedocumented in this encounter Care Teams Surgery Technician Relationship Specialty Start Date End Date Keon Sharpe MD PCP - General Internal Medicine 05/15/17 03/01/21 Sujit Vogel PCP - General Internal Medicine 03/02/21 Keon Varghese MD Business Continuity Strategy Director Cardiovascular Disease 11/01/21 documented as of this encounter
--- OUTSIDE RECORDS SUMMARY | 2025-01-28 13:59 | XMS_ITS | Encounter Summary ---
Author Organization [facility] Address [address] [place] [address] Care Team Providers Care Excel Expert Name Role Phone Keon Sharpe MD Primary Care Provider Keon Joseph MD Primary Care Provider Sujit Blum Primary Care Provider Keon Alvarez MD Unavailable Encounter Details Date Type Department Care Team Description 04/12/2016 Hospital Medical Records [address] [place] [address] Mark Perea MD [address] [place] [address] Social History Tobacco Use Types Packs/Day Years [...] on filedocumented in this encounter Care Teams Excel Expert Relationship Specialty Start Date End Date Keon Sharpe MD PCP - General Internal Medicine 05/15/17 03/01/21 Keon Sharpe MD PCP - General 04/11/16 05/14/17 Sujit Vogel PCP - General Internal Medicine 03/02/21 Keon Varghese MD Director Product Safety Cardiovascular Disease 11/01/21 documented as of this encounter
--- OUTSIDE RECORDS SUMMARY | 2025-01-28 13:59 | XMS_ITS | Encounter Summary ---
Author Organization [facility] Address [address] [place] [address] Care Team Providers Care Accounting Supervisor Name Role Phone Keon Sharpe MD Primary Care Provider Sujit Blum Primary Care Provider Keon Alvarez MD Unavailable Reason for Visit * Reason Onset Date Comments radiology 10/18/2018 breast ultrasoun d Encounter Details Date Type Department Care Team Description 10/18/2018 Telephone General Surgery [address] [place] [address] Mark Perea MD [address] [place] [address] [phone] radiology (breast ultrasound) Social History Tobacco Use Types Packs/Day Years [...] encounter Miscellaneous Notes * Telephone Encounter - Vick Montenegro M.A. - 10/18/2018 1:50 PM EDT Called ultrasound department to book breast ultrasound order by dr. Perea they are unable to book ultrasound patient needs to have a mammogram first last mammogram was back on February 2018 in order for patient to have a ultrasound she must have a mammogram within 6 months. documented in this encounter Plan of Treatment Not on file documented as of this encounter Visit Diagnoses Not on filedocumented in this encounter Care Teams Accounting Supervisor Relationship Specialty Start Date End Date Keon Sharpe MD PCP - General Internal Medicine 05/15/17 03/01/21 Sujit Vogel PCP - General Internal Medicine 03/02/21 Keon Varghese MD Telecommunications Cable Jointer Cardiovascular Disease 11/01/21 documented as of this encounter
--- OUTSIDE RECORDS SUMMARY | 2025-01-28 13:59 | XMS_ITS | Encounter Summary ---
Author Organization [facility] Address [address] [place] [address] Care Team Providers Care Sharepoint Trainer Name Role Phone Keon Sharpe MD Primary Care Provider Keon Joseph MD Primary Care Provider Sujit Blum Primary Care Provider Keon Alvarez MD Unavailable Encounter Details Date Type Department Care Team Description 04/12/2016 Retail Greeting Card Merchandiser Report Medical Records [address] [place] [address] Mark Perea MD [address] [place] [address] Social History Tobacco Use Types Packs/Day Years Used Date Smoking Tobacco: Former Cigarettes Q uit: 05/29/2009 Smokeless Tobacco: Never Comments:quit 11/2009 Alcohol Use Standard Drinks/Week Comments No 0 (1 standard drink = 0.6 oz pur e alcohol) Sex Assigned at Date Recorded Female 08/29/2023 1:30 PM EDT Job Start Date Occupation Industry Not on file Not on file Not on file documented as of this encounter Plan of Treatment Not on file documented as of this encounter Visit Diagnoses Not on filedocumented in this encounter Care Teams Sharepoint Trainer Relationship Specialty Start Date End Date Keon Sharpe MD PCP - General Internal Medicine 05/15/17 03/01/21 Keon Sharpe MD PCP - General 04/11/16 05/14/17 Sujit Vogel PCP - General Internal Medicine 03/02/21 Keon Varghese MD Color Consultant Cardiovascular Disease 11/01/21 documented as of this encounter
--- OUTSIDE RECORDS SUMMARY | 2025-01-28 13:59 | XMS_ITS | Encounter Summary ---
Author Organization [facility] Address [address] [place] [address] Care Team Providers Care Senior Windows Administrator Name Role Phone Keon Sharpe MD Primary Care Provider Sujit Blum Primary Care Provider Keon Alvarez MD Unavailable Encounter Details Date Type Department Care Team Description 10/17/2018 Orders Only General Surgery - [address] [place] [address] Mark Perea MD [place], [place] [phone] Breast mass, right (Primary Dx) Social History Tobacco Use Types Packs/Day Years [...] on file documented as of this encounter Results * SONO BREAST, LIMITED (11/08/2018) Mark Perea MD MAMMOGRAPHY documented in this encounter Visit Diagnoses Diagnosis Breast mass, right- Primary Lump or mass in breast documented in this encounter Care Teams Senior Windows Administrator Relationship Specialty Start Date End Date Keon Sharpe MD PCP - General Internal Medicine 05/15/17 03/01/21 Sujit Vogel PCP - General Internal Medicine 03/02/21 Keon Varghese MD Cement Tile Maker Cardiovascular Disease 11/01/21 documented as of this encounter
--- OUTSIDE RECORDS SUMMARY | 2025-01-28 13:59 | XMS_ITS | Encounter Summary ---
Author Organization [facility] Address [address] [place] [address] Care Team Providers Care Supervisor Frame Sample And Pattern Name Role Phone Celeste Lainez Primary Care Provider Keon Sexton MD Primary Care Provider Keon Joseph MD Primary Care Provider Sujit Blum Primary Care Provider Keon Alvarez MD Unavailable Encounter Details Date Type Department Care Team Description 12/12/2014 Business Doc Medical Records [address] [place] [address] Abstract, Provider Social History Tobacco Use Types Packs/Day Years Used Date Smoking Tobacco: Former Comments:quit 11/2009 Alcohol Use Standard Drinks/Week Comments [...] on filedocumented in this encounter Care Teams Supervisor Frame Sample And Pattern Relationship Specialty Start Date End Date Celeste Lainez PCP - General Internal Medicine 03/01/12 04/10/16 Keon Sharpe MD PCP - General Internal Medicine 05/15/17 03/01/21 Keon Sharpe MD PCP - General 04/11/16 05/14/17 Sujit Vogel PCP - General Internal Medicine 03/02/21 Keon Varghese MD Clinical Operations Specialist Cardiovascular Disease 11/01/21 documented as of this encounter
--- OUTSIDE RECORDS SUMMARY | 2025-01-28 13:59 | XMS_ITS | Encounter Summary ---
Author Organization [facility] Address [address] [place] [address] Care Team Providers Care Acid Cutter Name Role Phone Sujit Vogel Primary Care Provider [facility] Keon Varghese MD Unavailable Encounter Details Date Type Department Care Team Description 09/17/2021 Sociology Instructor Report Medical Records [address] [place] [address] Brent Nunes MD Social History Tobacco Use Types Packs/Day [...] on filedocumented in this encounter Care Teams Acid Cutter Relationship Specialty Start Date End Date Sujit Vogel PCP - General Internal Medicine 03/02/21 Keon Varghese MD Nurse Special Cardiovascular Disease 11/01/21 documented as of this encounter
--- OUTSIDE RECORDS SUMMARY | 2025-01-28 13:59 | XMS_ITS | Encounter Summary ---
Author Organization [facility] Address [address] [place] [address] Care Team Providers Care Guest Services Coordinator Name Role Phone Keon Sharpe MD Primary Care Provider Keon Joseph MD Primary Care Provider Sujit Blum Primary Care Provider Keon Alvarez MD Unavailable Encounter Details Date Type Department Care Team Description 05/05/2016 Field Hockey And Lacrosse Coach Report Medical Records [address] [place] [address] Jovanni Salter MD Social History Tobacco Use [...] on filedocumented in this encounter Care Teams Guest Services Coordinator Relationship Specialty Start Date End Date Keon Sharpe MD PCP - General Internal Medicine 05/15/17 03/01/21 Keon Sharpe MD PCP - General 04/11/16 05/14/17 Sujit Vogel PCP - General Internal Medicine 03/02/21 Keon Varghese MD Respiratory Therapy Assistant Cardiovascular Disease 11/01/21 documented as of this encounter
--- OUTSIDE RECORDS SUMMARY | 2025-01-28 13:59 | XMS_ITS | Encounter Summary ---
Author Organization [facility] Address [address] [place] [address] Care Team Providers Care Natural Resources Instructor Name Role Phone Sujit Vogel Primary Care Provider Keon Alvarez MD Unavailable Encounter Details Date Type Department Care Team Description 09/16/2021 SCAN Medical Records [address] [place] [address] Jovanni Salter MD Social History Tobacco Use [...] Date/Time Associated Diagnosis Comments OUTSIDE LAB Routine 09/16/2021 OUTSIDE LAB Routine 09/16/2021 documented in this encounter Results * OUTSIDE LAB (09/16/2021) Provider Abstract LAB * OUTSIDE LAB (09/16/2021) Provider Abstract LAB documented in this encounter Visit Diagnoses Not on filedocumented in this encounter Care Teams Natural Resources Instructor Relationship Specialty Start Date End Date Sujit Vogel PCP - General Internal Medicine 03/02/21 Keon Varghese MD Cna Cardiovascular Disease 11/01/21 documented as of this encounter
--- OUTSIDE RECORDS SUMMARY | 2025-01-28 13:59 | XMS_ITS | Encounter Summary ---
Author Organization [facility] Address [address] [place] [address] Care Team Providers Care Manager Investment Banking Name Role Phone Keon Sharpe MD Primary Care Provider Sujit Blum Primary Care Provider Keon Alvarez MD Unavailable Reason for Visit * Reason Onset Date Comments radiology 10/17/2018 breast ultrasoun d Encounter Details Date Type Department Care Team Description 10/17/2018 Telephone General Surgery [address] [place] [address] Mark Perea MD [address] [place] [address] [phone] radiology (breast ultrasound ) Social History Tobacco Use Types Packs/Day Years [...] Telephone Encounter - Vick Montenegro M.A. - 10/17/2018 9:14 AM EDT Patient called regarding breast ultrasound that was order back in May she now states she couldn't make it and she prefers to have it done at [facility] can you please change the order for External. Thanks in advenced!!! documented in this encounter Plan of Treatment Not on file documented as of this encounter Visit Diagnoses Not on filedocumented in this encounter Care Teams Manager Investment Banking Relationship Specialty Start Date End Date Keon Sharpe MD PCP - General Internal Medicine 05/15/17 03/01/21 Sujit Vogel PCP - General Internal Medicine 03/02/21 Keon Varghese MD Steel Layer Cardiovascular Disease 11/01/21 documented as of this encounter
--- OUTSIDE RECORDS SUMMARY | 2025-01-28 13:59 | XMS_ITS | Encounter Summary ---
Author Organization [facility] Address [address] [place] [address] Care Team Providers Care Welding Machine Operator Thermit Name Role Phone Keon Sharpe MD Primary Care Provider Keon Joseph MD Primary Care Provider Sjuit Blum Primary Care Provider Keon Alvarez MD Unavailable Encounter Details Date Type Department Care Team Description 05/10/2016 Broadcast Checker Report Medical Records [address] [place] [address] Martha Anthony Social History Tobacco Use Types Packs/Day Years [...] on filedocumented in this encounter Care Teams Welding Machine Operator Thermit Relationship Specialty Start Date End Date Keon Sharpe MD PCP - General Internal Medicine 05/15/17 03/01/21 Keon Sharpe MD PCP - General 04/11/16 05/14/17 Sujit Vogel PCP - General Internal Medicine 03/02/21 Keon Varghese MD Word Processing Operator Cardiovascular Disease 11/01/21 documented as of this encounter
--- OUTSIDE RECORDS SUMMARY | 2025-01-28 13:59 | XMS_ITS | Encounter Summary ---
Author Organization [facility] Address [address] [place] [address] Care Team Providers Care Coding Technician Name Role Phone Sujit Vogel [facility] Keon Varghese MD Unavailable Encounter Details Date Type Department Care Team Description 08/31/2021 SCAN Medical Records [address] [place] [phone] Abstract, Provider Social History Tobacco Use Types [...] Date/Time Associated Diagnosis Comments OUTSIDE LAB Routine 08/31/2021 documented in this encounter Results * OUTSIDE LAB (08/31/2021) Provider Abstract LAB documented in this encounter Visit Diagnoses Not on filedocumented in this encounter Care Teams Coding Technician Relationship Specialty Start Date End Date Sujit Vogel PCP - General Internal Medicine 03/02/21 Keon Varghese MD Brim Cutter Cardiovascular Disease 11/01/21 documented as of this encounter
--- OUTSIDE RECORDS SUMMARY | 2025-01-28 13:59 | XMS_ITS | Encounter Summary ---
Author Organization [facility] Address [address] [place] [address] Care Team Providers Care Christian Science Nurse Name Role Phone Celeste Lainez Primary Care Provider Keon Sexton MD Primary Care Provider Keon Joseph MD Primary Care Provider Sujit Blum Primary Care Provider Keon Alvarez MD Unavailable Encounter Details Date Type Department Care Team Description 07/27/2012 Business Doc Medical Records [address] [place] [address] Abstract, Provider Social History Tobacco Use Types [...] on filedocumented in this encounter Care Teams Christian Science Nurse Relationship Specialty Start Date End Date Celeste Lainez PCP - General Internal Medicine 03/01/12 04/10/16 Keon Sharpe MD PCP - General Internal Medicine 05/15/17 03/01/21 Keon Sharpe MD PCP - General 04/11/16 05/14/17 Sujit Vogel PCP - General Internal Medicine 03/02/21 Keon Varghese MD Patrol Commander Cardiovascular Disease 11/01/21 documented as of this encounter
--- OUTSIDE RECORDS SUMMARY | 2025-01-28 13:59 | XMS_ITS | Clinical Summary ---
Author Organization [facility] Address [address] [place] [address] Care Team Providers Care Shipping Manager Name Role Phone Sujit Vogel DO Primary Care Provider [phone] Medications Repatha SureClick 140 mg/mL pen injector injection Inject 1 mL (140 mg total) under the skin every 14 (fourteen) days. 6 mL 3 10/24/2024 Active Surgical History Surgery Date Site/Laterality Comments BREAST BIOPSY PROCEDURE: BX BREAST; PERC NEEDLE CORE W/IMAG GUID BREAST LUMPECTOMY 2015 PROCEDURE: HISTORICAL BREAST LUMPECTOMY; COMMENT: infilatrating ductal carcinoma COLONOSCOPY PROCEDURE: HISTORICAL COLONOSCOPY; COMMENT: remote, nml per patient Medical History Medical History Date Comments Hypertension 04/23/2017 DX:Hypertension Hyperlipidemia 04/23/2017 DX:Hyperlipidemi a Breast cancer (CMS/HCC V24, CMS/HCC V28) 017 DX:Breast cancer (HCC) Urinary incontinence DX:Urinary incontinence Breast cancer (CMS/HCC V24, CMS/HCC V28) DX:Breast cancer (HCC) Hypertension DX:Hypertension Family History Medical [...] on file Sexual Orientation Not on file Obstetrics History Last Filed [...] Description 03/10/2025 1:15 PM EDT Office Visit [facility] Hematology Oncology [address] [place] [phone] Jovanni Salter MD [address] [place] [address] 03/14/2025 2:40 PM EDT Office Visit [facility] [address] [facility] [address] [place] [phone] Kelly De Guzman NP [address] [place] [address] [place] [address] Health Maintenance Due Date Last Done Comments DTaP,Tdap,and Td Vaccines (1 - Tdap) 1964 Zoster Vaccines (1 of 2) 1964 Falls Risk Assessment 10/20/2021 Hepatitis C Screening 10/20/2021 Medicare Annual Wellness Visit 10/20/2021 Social Influencers of Health Screening 10/20/2021 RSV Immunization Adult Patients (1 - 1-dose 75+ series) 2022 Depression Screening 05/29/2024 COVID-19 Vaccine (7 - Pfizer risk season) 2025 02/19/2024, 10/10/2022, 02/14/2022, Additional history exists Influenza Vaccine (#1) 2025 , 04/13/2023, 02/28/2022, Additional history exists Hypertension/CHF/CAD Annual BMP Blood Test 05/02/2025 05/02/2024 Osteoporosis Screening (Bone Density Screening) 08/15/2027 08/14/2017 Cholesterol Screening (Lipid Panel) 08/08/2029 08/08/2024 Hepatitis B Vaccines Completed 06/21/2018, 01/12/2018, 12/12/2017 Pneumococcal Vaccine: 50+ Years Completed 04/13/2023 Breast Cancer Screening Discontinued 04/08/20, 04/07/2023, 03/25/2021, [...] patient's age to complete this topic Meningococcal B Vaccine Aged Out No l onger eligible based on patient's age to complete this topic RSV Immunization Patients Under 20 months Aged Out No longer eligible based on patient's age to complete this topic Varicella Vaccines Aged Out No longer eligible based on patient's age to complete this topic Procedures Procedure Name Priority Date/Time Associated Diagnosis Comments LIPID PANEL WITH REFLEX TO DIRECT LDL Routine 08/08/2024 11:41 AM EDT Hyperlipidemia BASIC METABOLIC PANEL Routine 05/02/2024 2:15 PM EST Obstructive sleep apnea (adult) (pediatric) Right heart failure (CMS/HCC V24, CMS/HCC V28) MG MAMMO DIGITAL SCREENING W EMMANUEL BILAT Routine 04/08/2024 2:22 PM EST Encounter for screening mammogram for breast cancer SARAH DEXA AXIAL SKELETON Routine 08/14/2017 2:18 PM EDT Encounter for screening for osteoporosis from Last 3 Months or Most Recently Relevant to Health Maintenance Results * Lipid panel with reflex to direct LDL (08/08/2024 11:41 AM EDT) Cholesterol 138 0 - 200 mg/dL LAB CHEMISTRY METHOD 08/08/2024 1:54 PM EDT [facility] Triglycerides 93 0 - 150 mg/dL LAB CHEMISTRY METHOD 08/08/2024 1:54 PM EDT [facility] HDL 52 >=40 mg/dL LAB CHEMISTRY METHOD 08/08/2024 1:54 PM EDT [facility] LDL Calculated 67 0 - 100 mg/dL LAB CHEMISTRY METHOD 08/08/2024 1:54 PM EDT [facility] VLDL Cholesterol Shar 18.6 mg/dL LAB CHEMISTRY METHOD 08/08/2024 1:54 PM EDT [facility] Non HDL Chol. (LDL+VLDL) 86 <145 mg/dL LAB CHEMISTRY METHOD 08/08/2024 1:54 PM EDT [facility] Chol/HDL Ratio 2.7 0.0 - 4.4 LAB CHEMISTRY METHOD 08/08/2024 1:54 PM EDT [facility] Blood Venous blood specimen / Unknown Venipuncture / Unknown 08/08/2024 11:41 AM EDT 08/08/2024 12:49 PM EDT us Keon Varghese MD LAB BLOOD ORDERABLES Final Resu lt [facility] [address] [place] [address], * Basic metabolic panel (05/02/2024 2:15 PM EST) Sodium 140 133 - 145 mmol/L LAB CHEMISTRY METHOD 05/02/2024 3:13 PM [facility] Potassium 4.3 3.5 - 5.5 mmol/L LAB CHEMISTRY METHOD 05/02/2024 3:13 PM [facility] Chloride 107 96 - 110 mmol/L LAB CHEMISTRY METHOD 05/02/2024 3:13 PM [facility] CO2 29 21 - 32 mmol/L LAB CHEMISTRY METHOD 05/02/2024 3:13 PM [facility] Anion Gap 4 3 - 11 LAB CHEMISTRY METHOD 05/02/2024 3:13 PM [facility] Glucose 86 70 - 100 mg/dL LAB CHEMISTRY METHOD 05/02/2024 3:13 PM [facility] BUN 12 5 - 25 mg/dL LAB CHEMISTRY METHOD 05/02/2024 3:13 PM [facility] Creatinine 0.93 0.50 - 1.10 mg/dL LAB CHEMISTRY METHOD 05/02/2024 3:13 PM [facility] eGFR 63 >=60 mL/min/1. 73m2 LAB CHEMISTRY METHOD 05/02/2024 3:13 PM [facility] Comment:Calculation based on the Chronic Kidney Disease Epidemiology Collaboration (CKD-EPI) equation refit without adjustment for race. BUN/Creatinine Ratio 12.9 LAB CHEMISTRY METHOD 05/02/2024 3:13 PM [facility] Calcium 9.7 8.5 - 10.5 mg/dL LAB CHEMISTRY METHOD 05/02/2024 3:13 PM [facility] Blood Venous blood specimen / Unknown Venipuncture / Unknown 05/02/2024 2:15 PM EST 05/02/2024 2:36 PM EST us Sujit Vogel DO LAB BLOOD ORDERABLES Final Re sult [facility] ([facility] [address] [place] [address], [place] [phone] * MG Mammo Digital Screening w Emmanuel [...] year. Mammo Location: [facility], [address] [place] [address], [phone], . -------- FINAL REPORT -------- Dictated By: Emilee Granger Dictated Date: 04/08/2024 17:27 ET Assigned Physician: Emilee Granger Reviewed and Electronically Signed By: Emilee Granger Signed Date: 04/08/2024 17:30 ET Workstation ID: [id number] Transcribed By: Self Edit Transcribed Date: 04/08/2024 17:27 ET Narrative 04/08/2024 5:30 PM EST HISTORY: Screening. Personal history of right breast carcinoma treated with lumpectomy in 2016 followed by radiation treatment. Prior excisional biopsies of the left breast, pathology benign. Maternal grandmother had breast carcinoma. COMPARISON: 04/07/23, 04/04/22, 03/25/21 TECHNIQUE: Bilateral digital breast tomosynthesis was performed in the CC and MLO projections. Computer aided detection with PhraxisD Modelinia 3D 3.1 was employed. BREAST DENSITY: B [...] CCand MLO projections. Computer aided detection with AssertID 3D 3.1was employed. BREAST DENSITY: B - [...] year. Mammo Location: [facility], [address] [place] [address], [phone], . -------- FINAL REPORT -------- Dictated By: Emilee Granger Dictated Date: 04/08/2024 17:27 ET Assigned Physician: Emilee Granger Reviewed and Electronically Signed By: Emilee Granger Signed Date: 04/08/2024 17:30 ET Workstation ID: [id number] Transcribed By: Self Edit Transcribed Date: 04/08/2024 17:27 ET us Sujit Vogel DO IMG BI PROCEDURES Final Resul t * SARAH DEXA AXIAL SKELETON (08/14/2017 2:18 PM EDT) Anatomical Region Laterality Modality Mammography 08/14/2017 1:24 PM EDT Narrative 08/14/2017 2:18 PM EDT [facility] Diagnostic Imaging Department [address] [place] [address] Patient: CELESTE SOLORZANO/Age/Sex: 1945 - 72 - F Unit#: [id number] Location/Status: SPDIMAM/REG CLI Mnemonic[facility] Ordering Physician: JOVANNI SALTER MD Sarah Dexa Axial Skeleton - 08/14/17 - 1343 HISTORY: The patient is a 72-year-old postmenopausal female with clinical concern for metabolic bone disease. FINDINGS: Dual [...] 93% of that of age matched controls. This yields a T-score of -0.3 and a [...] the prior examination of 08/10/2016. There has been a decrease of 3.3% in bone mineral density in the right femur and a decrease of 3.0% in bone mineral density in the left femur. 2. FRAX analysis yields a 10-year probability of major osteoporotic fracture of 3.8% and a 10-year probability of hip fracture of 0.5%. Code 41897 Dictating Physician: STERLING SANDOVAL MD Electronically Signed by: STERLING SANDOVAL MD Dic Date/Time: 08/14/17 1415 Sign date/Time: 08/14/17 1418 Procedure Note Sterling Sandoval MD - 05/17/2022 [facility] Diagnostic Imaging Department [address] [place] [address] Patient: CELESTE SOLORZANO /Age/Sex: 1945 72 - F Unit#: [id number] Location/Status: SPDIMA/REG CLI Mnemonic[facility] Ordering Physician: JOVANNI SALTER MD [facility] Dexa Axial Skeleton - 08/14/171342 HISTORY: The patient is a 72-year-old postmenopausal [...] density of the femurs bilaterally is 0.972 gm/ks6fyvpm is 96% of that of young normals [...] probability of hip fracture of 0.5%. Code 93719 Dictating Physician: STERLING SANDOVAL MD Electronically Signed by: STERLING SANDOVAL MD Dic Date/Time: 08/14/17 1415 Sign date/Time: 08/14/17 1418 Jovanni Jose Salter MD IMG BI PROCEDURES Final Resu lt from Last 3 Months or Most Recently Relevant to Health Maintenance Insurance MEDICARE MEDEX Advance Directives Documents on File Type Date Recorded Patient Telesales Team Leader Expl anation Health Care Decision (hx) 07/05/2016 [...] (hx) 07/05/2016 AD [place] DIRECTIVE Care Teams Shipping Manager Relationship Specialty Start Date End Date Sujit Vogel DO PCP - General Internal Medicine 03/02/21
--- OUTSIDE RECORDS SUMMARY | 2025-01-28 13:59 | XMS_ITS | Encounter Summary ---
Author Organization [facility] Address [address] [place] [address] Care Team Providers Care Ham Smoker Name Role Phone Keon Sharpe MD Primary Care Provider Sujit Blum Primary Care Provider Keon Alvarez MD Unavailable Encounter Details Date Type Department Care Team Description 03/19/2019 Orders Only General Surgery - [address] [place] [address] Mark Perea MD [address] [place], [place] [phone] Breast mass, right Social History Tobacco Use Types Packs/Day Years [...] Procedure Name Priority Date/Time Associated Diagnosis Comments DX MAMMO INCL CAD BI Routine 03/18/2019 Breast mass, right documented in this encounter Results * DX MAMMO INCL CAD BI (03/18/2019) Mark Perea MD MAMMOGRAPHY documented in this encounter Visit Diagnoses Diagnosis Breast mass, right Lump or mass in breast documented in this encounter Care Teams Ham Smoker Relationship Specialty Start Date End Date Keon Sharpe MD PCP - General Internal Medicine 05/15/17 03/01/21 Sujit Vogel PCP - General Internal Medicine 03/02/21 Keon Varghese MD Machine Chain Maker Cardiovascular Disease 11/01/21 documented as of this encounter
--- OUTSIDE RECORDS SUMMARY | 2025-01-28 13:59 | XMS_ITS | Encounter Summary ---
Author Organization [facility] Address [address] [place] [address] Care Team Providers Care Plug Overwrap Machine Tender Name Role Phone Keon Sharpe MD Primary Care Provider Sujit Blum Primary Care Provider Keon Alvarez MD Unavailable Encounter Details Date Type Department Care Team Description 11/09/2018 Orders Only Medical Records [address] [place] [address] Abstract, Provider Breast mass, right Social History Tobacco Use [...] Procedure Name Priority Date/Time Associated Diagnosis Comments SONO BREAST, LIMITED Routine 11/08/2018 Breast mass, right documented in this encounter Results * SONO BREAST, LIMITED (11/08/2018) Mark Perea MD MAMMOGRAPHY documented in this encounter Visit Diagnoses Diagnosis Breast mass, right Lump or mass in breast documented in this encounter Care Teams Plug Overwrap Machine Tender Relationship Specialty Start Date End Date Keon Sharpe MD PCP - General Internal Medicine 05/15/17 03/01/21 Sujit Vogel PCP - General Internal Medicine 03/02/21 Keon Varghese MD Inspecting And Testing Lead Hand Cardiovascular Disease 11/01/21 documented as of this encounter
--- OUTSIDE RECORDS SUMMARY | 2025-01-28 13:59 | XMS_ITS | Encounter Summary ---
Author Organization [facility] Address [address] [place] [address] Care Team Providers Care Public Health Policy Analyst Name Role Phone Sujit Vogel Primary Care Provider [facility] Keon Varghese MD Unavailable Encounter Details Date Type Department Care Team Description 03/10/2021 Transfer Records Medical Records [address] [place] [address] Abstract, Provider Social History Tobacco Use Types [...] on filedocumented in this encounter Care Teams Public Health Policy Analyst Relationship Specialty Start Date End Date Sujit Vogel PCP - General Internal Medicine 03/02/21 Keon Varghese MD Prep Room Supervisor Cardiovascular Disease 11/01/21 documented as of this encounter
--- OUTSIDE RECORDS SUMMARY | 2025-01-28 13:59 | XMS_ITS | Encounter Summary ---
Author Organization [facility] Address [address] [place] [address] Care Team Providers Care Medicaid Billing Specialist Name Role Phone Celeste Lainez Primary Care Provider Keon Sexton MD Primary Care Provider Keon Joseph MD Primary Care Provider Sujit Blum Primary Care Provider Keon Alvarez MD Unavailable Encounter Details Date Type Department Care Team Description 04/04/2016 SCAN Medical Records [address] [place] [address] Abstract, Provider Social History Tobacco Use Types [...] on filedocumented in this encounter Care Teams Medicaid Billing Specialist Relationship Specialty Start Date End Date Celeste Lainze PCP - General Internal Medicine 03/01/12 04/10/16 Keon Sharpe MD PCP - General Internal Medicine 05/15/17 03/01/21 Keon Sharpe MD PCP - General 04/11/16 05/14/17 Sujit Vogel PCP - General Internal Medicine 03/02/21 Keon Varghese MD Block Breaker Cardiovascular Disease 11/01/21 documented as of this encounter
--- OUTSIDE RECORDS SUMMARY | 2025-01-28 13:59 | XMS_ITS | Encounter Summary ---
Author Organization [facility] Address [address] [place] [address] Care Team Providers Care Latex Caster Name Role Phone Keon Sharpe MD Primary Care Provider Sujit Blum Primary Care Provider Keon Alvarez MD Unavailable Encounter Details Date Type Department Care Team Description 2020 Orders Only Medical Records [address] [place] [address] Abstract, Provider Social History Tobacco Use Types [...] Name Priority Date/Time Associated Diagnosis Comments OUTSIDE MAMMO Routine 2020 documented in this encounter Results * OUTSIDE MAMMO (2020) Mark Nails RADIOLOGY documented in this encounter Visit Diagnoses Not on filedocumented in this encounter Care Teams Latex Caster Relationship Specialty Start Date End Date Keon Sharpe MD PCP - General Internal Medicine 05/15/17 03/01/21 Sujit Vogel PCP - General Internal Medicine 03/02/21 Keon Varghese MD Wax Ball Knock Out Worker Cardiovascular Disease 11/01/21 documented as of this encounter
--- OUTSIDE RECORDS SUMMARY | 2025-01-28 13:59 | XMS_ITS | Clinical Summary ---
Author Organization [facility] Address [address] [place] [address] Care Team Providers Care Sat Act Instructor Name Role Phone Sujit Vogel MD Primary Care Provider [phone] Allergies Active Allergy Reactions Criticality Noted Date [...] 2 (two) times a day. 0 Active Mpur-Ufhnf-XQO-Boswel trupti-Vit D (GLUCOSAMINE CHOND TRIPLE/VIT D PO) [...] 79 03/07/2024 1:07 PM EDT Temperature 36.7 C (98.1 F) 03/07/2024 1:07 PM EDT Respiratory Rate - - Oxygen Saturation 89% [...] 1-dose 75+ series) 2022 Influenza Vaccine (#1) 2025 Hepatitis B Vaccines Aged Out No long er eligible based on patient's age to complete this topic RSV Ped < 20 months Aged Out No longe r eligible based on patient's age to complete this topic Care Teams Sat Act Instructor Relationship Specialty Start Date End Date Sujit Vogel MD [address] [place] [address] [place] [place] [address] PCP - General Internal Medicine 09/01/21
--- OUTSIDE RECORDS SUMMARY | 2025-01-28 13:59 | XMS_ITS | Encounter Summary ---
Author Organization [facility] Address [address] [place] [address] Care Team Providers Care Internal Control Analyst Name Role Phone Keon Sharpe MD Primary Care Provider Sujit Blum Primary Care Provider Keon Alvarez MD Unavailable Encounter Details Date Type Department Care Team Description 05/10/2019 Old Medical Records Medical Records [address] [place] [address] Abstract, Provider Social History Tobacco Use Types [...] filedocumented in this encounter Care Teams Internal Control Analyst Relationship Specialty Start Date End Date Keon Sharpe MD PCP - General Internal Medicine 05/15/17 03/01/21 Sujit Vogel PCP - General Internal Medicine 03/02/21 Keon Varghese MD Stroke Belt Sander Operator Cardiovascular Disease 11/01/21 documented as of this encounter
--- OUTSIDE RECORDS SUMMARY | 2025-01-28 13:59 | XMS_ITS | Encounter Summary ---
Author Organization [facility] Address [address] [place] [address] Care Team Providers Care Website Admin Name Role Phone Sujit Vogel Primary Care Provider Keon Alvarez MD Unavailable Encounter Details Date Type Department Care Team Description 03/26/2021 Orders Only Medical Records [address] [place] [address] Mark Perea MD [address] [place] [id number] Social History Tobacco Use Types Packs/Day Years [...] Date/Time Associated Diagnosis Comments OUTSIDE MAMMO Routine 03/25/2021 documented in this encounter Results * OUTSIDE MAMMO (03/25/2021) Mark Perea MD RADIOLOGY documented in this encounter Visit Diagnoses Not on filedocumented in this encounter Care Teams Website Admin Relationship Specialty Start Date End Date Sujit Vogel PCP - General Internal Medicine 03/02/21 Keon Varghese MD Environmental Specialist Cardiovascular Disease 11/01/21 documented as of this encounter
--- OUTSIDE RECORDS SUMMARY | 2025-01-28 13:59 | XMS_ITS | Encounter Summary ---
Author Organization [facility] Address [address] [place] [address] Care Team Providers Care Hostage Negotiator Name Role Phone Keon Sharpe MD Primary Care Provider Sujit Blum Primary Care Provider Keon Alvarez MD Unavailable Reason for Visit * Reason Onset Date Comments Testing 07/02/2018 ECHO Encounter Details Date Type Department Care Team Description 07/02/2018 Telephone Radiology - [address] [address] Josiah Turk MD Testing (ECHO) Social History Tobacco Use Types Packs/Day Years [...] encounter Miscellaneous Notes * Telephone Encounter - Wendy Patel - 07/02/2018 4:32 PM EST Celeste has been scheduled at [facility] for her ECHO Appointment will be 07/19/18 at 8:30 am Information has been maild. Wendy Nunez documented in this encounter Plan of Treatment Not on file documented as of this encounter Visit Diagnoses Not on filedocumented in this encounter Care Teams Hostage Negotiator Relationship Specialty Start Date End Date Keon Sharpe MD PCP - General Internal Medicine 05/15/17 03/01/21 Sujit Vogel PCP - General Internal Medicine 03/02/21 Keon Varghese MD Warehouse Forklift Operator Cardiovascular Disease 11/01/21 documented as of this encounter
--- OUTSIDE RECORDS SUMMARY | 2025-01-28 13:59 | XMS_ITS | Encounter Summary ---
Author Organization [facility] Address [address] [place] [address] Care Team Providers Care Noxious Weeds And Pest Inspector Name Role Phone Keon Sharpe MD Primary Care Provider Sujit Blum Primary Care Provider Keon Alvarez MD Unavailable Encounter Details Date Type Department Care Team Description 01/11/2021 SCAN Medical Records [address] [place] [address] Abstract, Provider Social History Tobacco Use Types [...] Name Priority Date/Time Associated Diagnosis Comments OUTSIDE VASCULAR STUDY Routine 01/11/2021 documented in this encounter Results * OUTSIDE VASCULAR STUDY (01/11/2021) Provider Abstract CARDIOLOGY documented in this encounter Visit Diagnoses Not on filedocumented in this encounter Care Teams Noxious Weeds And Pest Inspector Relationship Specialty Start Date End Date Keon Sharpe MD PCP - General Internal Medicine 12/18/17 10/4/21 Sujit Vogel PCP - General Internal Medicine 03/02/21 Keon Varghese MD Gi Physician Cardiovascular Disease 11/01/21 documented as of this encounter
--- OUTSIDE RECORDS SUMMARY | 2025-01-28 13:59 | XMS_ITS | Encounter Summary ---
Author Organization [facility] Address [address] [place] [address] Care Team Providers Care Management Developer Name Role Phone Celeste Lainez Primary Care Provider Keon Sexton MD Primary Care Provider Keon Joseph MD Primary Care Provider Sujit Blum Primary Care Provider Keon Alvarez MD Unavailable Encounter Details Date Type Department Care Team Description 04/04/2016 SCAN Medical Records [address] [place] [address] Abstract, Provider Abnormal mammogram of right breast Social History Tobacco Use Types Packs/Day Years [...] Procedure Name Priority Date/Time Associated Diagnosis Comments SD BX BREAST W/DEVICE 1ST LESION STEREOTACTIC GUID Routine 03/21/2016 Abnormal mammogram of right breast documented in this encounter Results * BX BREAST W DEVICE 1ST LESION STEREOTACTIC GUIDE (03/21/2016) Mark Perea MD MAMMOGRAPHY documented in this encounter Visit Diagnoses Diagnosis Abnormal mammogram of right breast documented in this encounter Care Teams Management Developer Relationship Specialty Start Date End Date Celeste Lainez PCP - General Internal Medicine 03/01/12 04/10/16 Keon Sharpe MD PCP - General Internal Medicine 05/15/17 03/01/21 Keon Sharpe MD PCP - General 04/11/16 05/14/17 Sujit Vogel PCP - General Internal Medicine 03/02/21 Keon Varghese MD Accounts Specialist Cardiovascular Disease 11/01/21 documented as of this encounter
== END ==
LOC: HO.CARD 12:45
PROVIDERS: PCP Internal Medicine; Visit Provider Hospitalist
DX: I27.20 Pulmonary hypertension, unspecified (principal)
CPT/HCPCS: 93306

== ENCOUNTER → 2025-01-28 12:48 | Outpatient (BNV) | payer MEDICARE, SELFPAY | PROVIDERS: PCP Internal Medicine; Visit Provider Internal Medicine | DX: I27.20 Pulmonary hypertension, unspecified (principal); I51.89 Other ill-defined heart diseases; I34.81 Nonrheumatic mitral (valve) annulus calcification; I36.1 Nonrheumatic tricuspid (valve) insufficiency | CPT/HCPCS: 93306 ==

== ENCOUNTER 2025-02-14 12:57 | Outpatient (AMB) | payer MEDICARE, SELFPAY ==
--- OUTSIDE RECORDS SUMMARY | 2024-03-07 12:50 | XMS_ITS | Encounter Summary ---
Author Organization [facility] Address [address] [place] [address] Care Team Providers Care Flat Cutter Name Role Phone JaspreetSujit mendoza Primary Care Provider [phone] Encounter Details Date Type Department Care Team (Late st Contact Info) Description 03/07/2024 12:50 PM EDT Hospital Encounter TH HISTORIC ENCOUNTERS EASTERN CONVERSION ONLY Jovanni Salter MD [address] [place] [phone] Social History Tobacco Use Types Packs/Day Years [...] is a 78 y.o. female. HPI: 78-year-old -Armenian female who had stage I hormone positive [...] patient had further workup and diagnosed with ER/LA positive HER-2/darby negative infiltrating ductal carcinoma Patient [...] (three) times aday., Disp: , Rfl: ??? 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 resected about 7 to 8 years ago, patient had T1c N0 pathology, ER/LA positive HER2/darby negative, patient did endocrine therapy [...] Description 03/10/2025 1:15 PM EDT Office Visit [facility] Hematology Oncology [address] [place] [address] Jovanni Salter MD [address] [place] [address] 03/14/2025 2:40 PM EDT Office Visit [facility] - [facility] [address] [facility] [address] [place] [phone] Kelly De Guzman, SHAWN [address] [place] [address] [place] [address] documented as of this encounter Visit Diagnoses Not on filedocumented in this encounter Care Teams Flat Cutter Relationship Specialty Start Date End Date Sujit Vogel DO PCP - General Internal Medicine 03/02/21 documented as of this encounter
--- OUTSIDE RECORDS SUMMARY | 2024-03-07 13:00 | XMS_ITS | Encounter Summary ---
Author Organization [facility] Address [address] [place] [address] Care Team Providers Care Crosscutter Name Role Phone JaspreetSujit mendoza Primary Care Provider [phone] Encounter Details Date Type Department Care Team (Late Contact Info) Description 03/07/2024 1:00 PM EDT Hospital Encounter TH HISTORIC ENCOUNTERS EASTERN CONVERSION ONLY Jovanni Salter MD [address] [place] [address] Social History Tobacco Use Types Packs/Day Years [...] Description 03/10/2025 1:15 PM EDT Office Visit [facility] Hematology Oncology [address] [place] [phone] Jovanni Salter MD [address] [place] [address] 03/14/2025 2:40 PM EDT Office Visit [facility] - [facility] [address] [facility] [address] [place] [address] Kelly De Guzman, SHAWN [address] [place] [address] Dr Gutiérrez [address] [place] [phone] documented as of this encounter Visit Diagnoses Not on filedocumented in this encounter Care Teams Crosscutter Relationship Specialty Start Date End Date Sujit Vogel DO PCP - General Internal Medicine 03/02/21 documented as of this encounter
--- OUTSIDE RECORDS SUMMARY | 2025-02-14 13:00 | XMS_ITS | Clinical Summary ---
Author Organization Patient Business Ser [facility] Address [address] [place] [address] Care Team Providers Care Semi Conductor Assembler Name Role Phone Sujit Vogel DO Primary Care Provider [phone] Medications Repatha SureClick 140 mg/mL pen injector [...] Description 03/10/2025 1:15 PM EDT Office Visit [facility] Hematology Oncology [address] [place] [phone] Jovanni Salter MD [address] [place] [address] 03/14/2025 2:40 PM EDT Office Visit [facility] [address] [facility] [address] [place] [phone] Kelly De Guzman NP [address] [place] [address] [place] [address] Health Maintenance Due Date Last Done Comments [...] LAB CHEMISTRY METHOD 08/08/2024 1:54 PM EDT [facility] Triglycerides 93 0 - 150 mg/dL LAB CHEMISTRY METHOD 08/08/2024 1:54 PM EDT [facility] HDL 52 >=40 mg/dL LAB CHEMISTRY METHOD 08/08/2024 1:54 PM EDT [facility] LDL Calculated 67 0 - 100 mg/dL LAB CHEMISTRY METHOD 08/08/2024 1:54 PM EDT [facility] VLDL Cholesterol Shar 18.6 mg/dL LAB CHEMISTRY METHOD 08/08/2024 1:54 PM EDT [facility] Non HDL Chol. (LDL+VLDL) 86 <145 mg/dL LAB CHEMISTRY METHOD 08/08/2024 1:54 PM EDT [facility] Chol/HDL Ratio 2.7 0.0 - 4.4 LAB CHEMISTRY METHOD 08/08/2024 1:54 PM EDT [facility] Blood Venous blood specimen / Unknown Venipuncture / Unknown 08/08/2024 11:41 AM EDT 08/08/2024 12:49 PM EDT us Keon Varghese MD LAB BLOOD ORDERABLES Final Resu lt [facility] [address] [place] [address], * Basic metabolic panel (05/02/2024 2:15 PM EST) Sodium 140 133 - 145 mmol/L LAB CHEMISTRY METHOD 05/02/2024 3:13 PM [facility] Potassium 4.3 3.5 - 5.5 mmol/L LAB CHEMISTRY METHOD 05/02/2024 3:13 PM [facility] Chloride 107 96 - 110 mmol/L LAB CHEMISTRY METHOD 05/02/2024 3:13 PM [facility] CO2 29 21 - 32 mmol/L LAB CHEMISTRY METHOD 05/02/2024 3:13 PM [facility] Anion Gap 4 3 - 11 LAB CHEMISTRY METHOD 05/02/2024 3:13 PM [facility] Glucose 86 70 - 100 mg/dL LAB CHEMISTRY METHOD 05/02/2024 3:13 PM [facility] BUN 12 5 - 25 mg/dL LAB CHEMISTRY METHOD 05/02/2024 3:13 PM [facility] Creatinine 0.93 0.50 - 1.10 mg/dL LAB CHEMISTRY METHOD 05/02/2024 3:13 PM [facility] eGFR 63 >=60 mL/min/1. 73m2 LAB CHEMISTRY METHOD 05/02/2024 3:13 PM [facility] Comment:Calculation based on the Chronic Kidney Disease Epidemiology Collaboration (CKD-EPI) equation refit without adjustment for race. BUN/Creatinine Ratio 12.9 LAB CHEMISTRY METHOD 05/02/2024 3:13 PM [facility] Calcium 9.7 8.5 - 10.5 mg/dL LAB CHEMISTRY METHOD 05/02/2024 3:13 PM [facility] Blood Venous blood specimen / Unknown Venipuncture / Unknown 05/02/2024 2:15 PM EST 05/02/2024 2:36 PM EST us Sujit Vogel DO LAB BLOOD ORDERABLES Final Re sult [facility] [address] [place] [address], [place] [phone] * MG Mammo Digital Screening w Emmanuel [...] year. Mammo Location: [facility], [address] [place] [address], [id number], . -------- FINAL REPORT -------- Dictated By: Emilee Granger Dictated Date: 04/08/2024 17:27 ET Assigned Physician: Emilee Granger Reviewed and Electronically Signed By: Emilee Granger Signed Date: 04/08/2024 17:30 ET Workstation ID: [id number] Transcribed By: Self Edit Transcribed Date: 04/08/2024 [...] and MLO projections. 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 BREAST DENSITY: B [...] CCand MLO projections. 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 BREAST DENSITY: B - [...] year. Mammo Location: [facility], [address] [place] [address], [id number], . -------- FINAL REPORT -------- Dictated By: Emilee Granger Dictated Date: 04/08/2024 17:27 ET Assigned Physician: Emilee Granger Reviewed and Electronically Signed By: Emilee Granger Signed Date: 04/08/2024 17:30 ET Workstation ID: [id number] Transcribed By: Self Edit Transcribed Date: 04/08/2024 17:27 ET us Sujit Vogel DO IMG BI PROCEDURES Final Resul t * SARAH DEXA AXIAL SKELETON (08/14/2017 2:18 PM EDT) Anatomical Region Laterality Modality Mammography 08/14/2017 1:24 PM EDT Narrative 08/14/2017 2:18 PM EDT [facility] Diagnostic Imaging Department [address] [place] [id number] Patient: CELESTE SOLORZANO/Age/Sex: 1945 - 72 - F Unit#: [id number] Location/Status: SPDIMAM/REG CLI Mnemonic[facility] Ordering Physician: JOVANNI SALTER MD Sarah Dexa [...] probability of hip fracture of 0.5%. Code 90389 Dictating Physician: STERLING SANDOVAL MD Electronically Signed by: STERLING SANDOVAL MD Dic Date/Time: 08/14/17 1415 Sign date/Time: 08/14/17 1418 Procedure Note Sterling Sandoval MD - 05/17/2022 [facility] Diagnostic Imaging Department [address] [place] [id number] Patient: CELESTE SOLORZANO /Age/Sex: 1945 72 - F Unit#: [id number] Location/Status: SPDIMA/REG CLI Mnemonic[facility] Ordering Physician: JOVANNI SALTER MD [facility] Dexa Axial Skeleton - 08/14/171342 HISTORY: [...] density of the femurs bilaterally is 0.972 gm/bb7umehh is 96% of that of young normals [...] probability of hip fracture of 0.5%. Code 65368 Dictating Physician: STERLING SANDOVAL MD Electronically Signed by: STERLING SANDOVAL MD Dic Date/Time: 08/14/17 1415 Sign date/Time: 08/14/17 1418 Jovanni Jose Salter MD IMG BI PROCEDURES Final Resu lt from Last 3 Months or Most Recently Relevant to Health Maintenance Insurance MEDICARE MEDEX Advance Directives Documents on File Type Date Recorded Patient International Nurse Expl anation Health Care Decision (hx) 07/05/2016 [...] (hx) 07/05/2016 AD KINGSTON DIRECTIVE Care Teams Semi Conductor Assembler Relationship Specialty Start Date End Date Sujit Vogel DO PCP - General Internal Medicine 03/02/21
--- OUTSIDE RECORDS SUMMARY | 2025-02-14 13:00 | XMS_ITS | Clinical Summary ---
Author Organization [facility] Address [address] [place] [address] Care Team Providers Care Nuclear Reactor Engineer Name Role Phone Sujit Vogel MD Primary Care Provider [phone] Allergies Active Allergy Reactions Criticality Noted Date [...] 2 (two) times a day. 0 Active Xwyw-Bzeun-WNL-Boswel trupti-Vit D (GLUCOSAMINE CHOND TRIPLE/VIT D PO) [...] age to complete this topic Care Teams Nuclear Reactor Engineer Relationship Specialty Start Date End Date Sujit Vogel MD [address] [place] [address] [employer] [place] [address] PCP - General Internal Medicine 09/01/21
[2025-02-14 13:06] VITALS: BP 110/58; PULSE 76; O2SAT 93; BMI 34.5
--- NOTE | 2025-02-14 13:06 | A.OFFVIS_ITS ---
Vital Signs 02/14/25 13:06 Height 5 ft 7 in Weight 220 lb 7.396 oz BMI 34.5 BP 110/58 L Blood Pressure Location Lt brachial Position Sitting Pulse 76 Pulse Source Pulse Oximeter Pulse Oximetry (%) 93 Oxygen Delivery Method Room Air Intake Visit Reasons: COPD Telecom Field Technician Required: No Accompanied by: Self / Same As Patient Allergies No Known Allergies Allergy (Verified 02/14/25 13:27) HPI Comments Details: The patient is a 79-year-old woman with a known history of COPD, pulmonary hypertension currently a an PD5 inhibitors. She also has been on the oxygen. Typically uses 2 L with activity. I will have [employer] to a conserving device trial at this time. She does follow up with Cardiology a [facility] Cardiology. Will have to assess to see when she had the last echocardiogram. Her major complaint of significant spasms primarily on the thighs in the groin area. She feels these are related to her radiation therapy she had for breast cancer. She has been on multiple medications for this. Will try some anti-inflammatories to see if we can relieve some of the discomfort. She was wondering about hyperbaric chamber. She will follow-up with oncology regarding this issue. In regards to her COPD appears to be relatively stable on the Breo. She understands the Breo can also cause muscle spasms. She has been taking gabapentin and we did try baclofen in case the muscle spasms were from the long-acting muscarinic antagonist. At this point the patient is not getting any benefits from baclofen. She still having neuropathic pain. He is to consider following up with Neurology. She is using her oxygen. The oxygen supplementation has been effective. She does have a small portable tank. I did recommend she consider getting a filling station at home. She will let us know later on the springtime. She she did have an echocardiogram demonstrating that the PA pressures estimated of 51 mm of mercury. This overall is better. 08/12/2022 the patient is here for a pulmonary follow-up visit. Overall the patient had been doing well. She is still waiting for the sildenafil. There was an issue with a prescription. Will go ahead and resend to the pharmacy. We did talk about her echocardiogram demonstrating interval improvement in her pulmonary arterial pressures which is reassuring. Will have to repeat the echocardiogram sometime in 6 months or so to make sure that still stability of disease. We can also consider increasing the sildenafil if additional medication is warranted. In regards the CPAP the CPAP therapy continues to be affecting beneficial. She does use it every night along with her oxygen. She continues use the oxygen with activity with good effect and continues use her respiratory medicine. Although, the Trelegy is extremely expensive. Therefore I will send her Advair to the pharmacy. If the Advair is not cover or still too expensive then we can consider using good Rx card and getting AirDuo. 03/16/2023 the patient is here for a pulmonary follow-up visit. The patient continues to have dyspnea on exertion. Moderate severity. She is dependent on the oxygen. Although the portable tanks difficult for her to handle because of the weight. She is hoping to be able to switch over to a conserving device. we did do a 6 minute walk test. We initially placed her on room air and she did desaturate down to 80%. The patient was placed on 3 L pulse and she was able to maintain a pulse ox of 94% On the 3 L pulse of rest. She was then ambulated and she was able to maintain pulse ox at 90%. Therefore will go ahead and give her a prescription so she can get some conserving device tanks from her [employer] company and therefore use the oxygen more regularly. If the patient continues to do well with the conserving device tanks then we can request a portable oxygen concentrator. She will be following up with cardiol terenceist soon. She will continue with the current respiratory regimen. She is using CPAP at nighttime. The CPAP therapy has been affecting beneficial. She does use it for more than 4 hours a night. 06/27/2023 the patient is here for a pulmonary follow-up visit. She continues to do fairly well. The patient continues use her oxygen with good effect. She does use the conserving device. She only gets 1 conserving device valve which is very difficult as she has 2 small tanks that she likes use for portability outside of the home. I will request a additional conserving valve from her [employer] company. In addition to that the patient has been using her CPAP every night in the CPAP therapy has been affecting beneficial. She does use it for more than 4 hours a night. Unfortunately is given a message stating that it needs service. The patient has had this machine for more than 10 years. She is due for replacement at this time. I will request a replacement CPAP at this time from her do local [employer] company. She continues use her respiratory medications as prescribed. The patient also continues on sildenafil for pulmonary hypertension. Her last echo on record is from November 2021 estimate in in high normal pulmonary pressures suggesting that the medication is adequate. At some point which repeat her echocardiogram. 12/26/2023 the patient is here for a pulmonary follow-up visit. The patient is doing well. She continues on the oxygen with good effect. She also continues on the sildenafil 3 times a day. She continues with respiratory therapy. She still gets shortness of breath with activity. But is at baseline. She needs to get an echocardiogram hopefully get 1 prior to her next visit. She is using her CPAP. The CPAP therapy has been affecting beneficial when she does use it every night. We did download her machine is AHI is less than 1. The patient has pressure are adequate. Therefore she will continue the CPAP therapy at the current settings. She will continue with respiratory therapy. She will follow-up in a 6 months' time with the echocardiogram. If the patient has any issues prior to that she will call for an earlier assessment. 06/28/2024 the patient is here for a pulmonary follow-up visit. Overall she is doing well. She did get her new APAP currently 6-16. We did download the data. Her AHI is 0.4. Average pressure is around 12. And it does go up to 16 on the maximum pressure of the machine. But right now seems like her sleep apnea is well treated with current PAP settings. Although she gets a very dry mouth. She does use a fullface mask but her temperature is too high and she is running out of water. I did remotely decrease her temperature of the dish from 80 degrees F to 68. Kept humidity at 4. She is going to see if that works better. In addition to that she continues with her sildenafil 20 mg t.i.d.. Her last echo back in January demonstrated that she still has moderate pulmonary hypertension. Otherwise she is doing okay she does not feel like she is getting any worse. Will plan to keep her on that dose although will repeat the echocardiogram in the fall. If he has any worsening symptoms we can also consider either increasing the sildenafil or adding a 2nd agent. Although because of her underlying respiratory issues and her diastolic dysfunction I worry that too much basal dilation of the pulmonary vasculature will result in increased end diastolic pressures. 02/14/2025 the patient is here for pulmonary follow-up visit. The patient overall has been doing well. She continues uses CPAP every night CPAP therapy has been affecting beneficial. She does get supplies readily from [facility]. She is also using the oxygen although she has a hard time with the gas oxygen tanks. She does have a conserving device but she rather have a portable oxygen concentrator battery operated. Will request 1 from her [employer] company. She does have pulmonary hypertension and she does benefit from a portable oxygen concentrator specially if he is going to provide her better portability and usage with activity outside of the home. The patient also continues use her vasodilators therapy as prescribed. She did have a repeat echocardiogram demonstrating only mild pulmonary hypertension which is reassuring. She continues use her respiratory therapy as prescribed. Will follow-up in 6-8 mo nths if she has any issues prior to this she will call for an earlier assessment. [facility] Medical History (System 04/18/23 @ 15:41 by Sheron Holden) Palpitations RIP on CPAP COPD (chronic obstructive pulmonary disease) Pulmonary hypertension Social History Patient Tobacco Use Status: Former Tobacco user Review of Systems Const Denies night sweats ENT Denies change in voice, Denies lip swelling, Denies mouth pain, Reports nasal congestion, Reports nasal discharge and Denies tongue swelling Card Denies chest pain and Reports dyspnea on exertion Resp Reports cough, Reports dyspnea on exertion and Denies wheezing GI Denies abdominal pain Musc Denies no additional complaints Neuro Denies Neuro-related abnormal movements Psych Denies no additional complaints Winston/Lymph Denies easy bleeding and Denies lymphadenopathy Aller/Immun Denies lip swelling, Denies tongue swelling and Denies wheezing Physical Exam Vital Signs: Last Vital Signs Pulse 76 02/14/25 13:06 BP 110/58 L 02/14/25 13:06 Pulse Ox 93 02/14/25 13:06 Oxygen Delivery Method Room Air 02/14/25 13:06 BMI result Body Mass Index 34.5 Const General: alert Neck Neck: Yes normal visual inspection, Yes full ROM and Yes no lymphadenopathy Chest Chest palpation & inspection: normal inspection of the chest Resp Effort & Inspection: normal respiratory effort Auscultation: no wheezes and diminished lung sounds Cardio Rate: regular rate Rhythm: regular rhythm Heart sounds: S1 normal heart sound present and S2 normal heart sound present GI Palpation (GI): Soft to palpation and nontender Auscultation: normal bowel sounds Skin General skin exam: rashes and/or lesions noted Assessment & Plan Assessment & Plan (1) RIP on CPAP: Code(s): G47.33 - Obstructive sleep apnea (adult) (pediatric); Z99.89 - Dependence on other enabling machines and devices Category: Medical (2) COPD (chronic obstructive pulmonary disease): Code(s): J44.9 - Chronic obstructive pulmonary disease, unspecified Category: Medical Qualifiers: COPD type: chronic bronchitis Chronic bronchitis type: simple Qualified Code(s): J41.0 - Simple chronic bronchitis (3) Pulmonary hypertension: Comment: better Code(s): I27.20 - Pulmonary hypertension, unspecified Category: Medical (4) Palpitations: Code(s): R00.2 - Palpitations Category: Medical Plan continue conserving tank oxygen 3L pulse with rest and activity, requesting POC for better portability outside of the home continue Breo ANNALISE as needed continue Sildenafil 20mg TID APAP 6-16 at night with oxygen. temp 68 hum 4 ECHO-mild Pulmonary HTN (better) F/U 6 months Coding Level of Care Code Est Pt Level 4 (62310) Complex EM visit Add On G2211 Diagnoses RIP on CPAP G47.33; Z99.89 Simple chronic bronchitis J41.0 COPD type: chronic bronchitis Chronic bronchitis type: simple Pulmonary hypertension I27.20 Palpitations R00.2 Time Spent (min) 17
== END 2025-02-14 13:48 | disposition home or self-care (01) ==
LOC: HO.HPS 12:57
PROVIDERS: PCP Internal Medicine; Visit Provider Hospitalist
DX: G47.33 Obstructive sleep apnea (adult) (pediatric) (principal); Z99.89 Dependence on other enabling machines and devices; J41.0 Simple chronic bronchitis; I27.20 Pulmonary hypertension, unspecified; R00.2 Palpitations
CPT/HCPCS: 99214; G2211

== ENCOUNTER → 2025-02-14 12:57 | Outpatient (BNVA) | payer MEDICARE, SELFPAY | PROVIDERS: PCP Internal Medicine; Visit Provider Hospitalist | DX: I27.20 Pulmonary hypertension, unspecified (principal); J41.0 Simple chronic bronchitis; R00.2 Palpitations; G47.33 Obstructive sleep apnea (adult) (pediatric); Z99.89 Dependence on other enabling machines and devices; Z87.891 Personal history of nicotine dependence | CPT/HCPCS: 99212 ==